=== PATIENT | male | born 1945 | race Caucasian/White ===

== ENCOUNTER 2017-11-27 23:05 | Inpatient (IN) | payer MEDICARE, BC ==
[~2017-11-27] VITALS: Ht 185.4 cm; Wt 106.6 kg
[~2017-11-27 23:05] MED LIST: ACET325; ACET325 PO; AMLO10 PO; ASCO500; ASPI81CH PO; ATOR20 PO; Aspir 8181 MG; Calcium + Vita1 EACH; Cordarone200 MG PO; DOCSEN PO; EQ COMPLETE MU1 EAC1 PO; FERR325 PO; FERROUS SULFATE PO; FINA5 PO; FLUSAL1005 INH; GLIP10 PO; LOSA50 PO; METF500 PO; METO50ER PO; MICROZIDE12.5 MG PO; NAPR220 PO; OMEP40CA12 PO; Ocuvite Lutein1 EACH; POTA8; POTCHL10ER PO; Pyridium100 MG PO; SENN187 PO; TEA TREE; TERA5 PO; TRAM50 PO
[2017-11-27 23:30] LABS: PCO2 Arterial 42.4 mmHg (35-45); pH Blood Arterial 7.45 (7.35-7.45)
[2017-11-27 23:47] LABS: BASOPHILS ABSOLUTE AUTO 0.02 K/mm3 (0.00-0.23); BASOPHILS PERCENT AUTO 0 % (0-2); EOSINOPHILS PERCENT AUTO 0 % (0-6); Hematocrit 37.1 % (37.0-53.0); Hemoglobin 12.6 g/dL (13.5-17.5); IMMATURE GRAN ABSOLUTE AUTO 0.07 K/mm3 (0.00-0.10); IMMATURE GRAN PERCENT AUTO 1 % (0-1); LYMPHOCYTES ABSOLUTE AUTO 0.55 K/mm3 (0.84-5.20); LYMPHOCYTES PERCENT AUTO 4 % (21-46); MONOCYTES ABSOLUTE AUTO 1.07 K/mm3 (0.16-1.47); MONOCYTES PERCENT AUTO 7 % (4-13); Mean Corpuscular HGB 34.2 pg (26.0-34.0); Mean Corpuscular Volume 101 fL (80-100); Mean Platelet Volume 11.6 fL (9.1-12.4); NEUTROPHILS PERCENT AUTO 89 % (41-73); Platelet Count 125 K/mm3 (150-400); RDW Coefficient Variation 13.4 % (11.7-14.2); RDW Standard Deviation 49.7 fL (35.1-46.3); Red Blood Cell Count 3.68 M/mm3 (4.30-5.90); White Blood Cell Count 15.31 K/mm3 (4.00-11.30)
[2017-11-28 00:03] LABS: Alanine Aminotransfer (ALT/SGP 34 U/L (12-78); Albumin, Blood 3.3 g/dL (3.4-5.0); Albumin/Globulin Ratio 0.7 (0.8-1.8); Alk Phos 75 U/L (50-136); Anion Gap 8 mmol/L (6-16); Aspartate Aminotrans (AST/SGOT 34 U/L (12-37); Bilirubin, Total 1.7 mg/dL (0.1-1.0); Blood Urea Nitrogen 15 mg/dL (8-24); Bun/Creatinine Ratio 17.2 (12.0-20.0); CO2, Blood 30 mmol/L (21-32); Calcium, Blood 8.6 mg/dL (8.5-10.1); Chloride, Blood 101 mmol/L (98-108); Creatinine, Blood 0.87 mg/dL (0.60-1.20); Globulin, Blood 4.5 g/dL (2.2-4.0); Glomerular Filtration Rate >60 (60-); Glucose, Blood 175 mg/dL (70-99); Potassium, Blood 3.7 mmol/L (3.5-5.5); Sodium, Blood 139 mmol/L (136-145); Total Protein, Blood 7.8 g/dL (6.4-8.2); Troponin I <0.015 ng/mL (0.000-0.040)
[2017-11-28] MEDS ORDERED: AZAT50 PO (01:59)
[2017-11-28] MEDS ORDERED: LOPE2C PO (02:01)
[2017-11-28] MEDS ORDERED: LIRA0.6P SC (02:02)
[2017-11-28] MEDS ORDERED: TOLT4 PO (02:02)
[2017-11-28 02:40] LABS: Source, Urine Clean Catch
[2017-11-28 02:42] LABS: Bilirubin, Urine Neg (Neg); Blood, Urine 1+ (Neg); Glucose Qualitative, Urine Neg (Neg); Ketones, Urine Neg (Neg); Leukocyte Esterase, Urine Neg (Neg); Nitrite, Urine Neg (Neg); Protein, Urine Neg (Neg); Urobilinogen, Urine NORM (Normal)
[2017-11-28 02:43] LABS: Appearance, Urine Clear (Clear); Color, Urine Yellow (P-Yellow)
[2017-11-28 02:47] LABS: Bacteria Not Seen /hpf; Red Blood Cells, Urine 0-2 /hpf (0-2); Squamous Epithelial Cells Few /hpf (Few); White Blood Cells, Urine Not Seen /hpf (0-5)
[2017-11-28 02:48] LABS: Other Crystals Few /hpf
[2017-11-28 03:02] LABS: Influenza A Negative (NEGATIVE); Influenza B Negative (NEGATIVE)
[2017-11-28 03:07] LABS: BASOPHILS ABSOLUTE AUTO 0.02 K/mm3 (0.00-0.23); BASOPHILS PERCENT AUTO 0 % (0-2); EOSINOPHILS PERCENT AUTO 0 % (0-6); Hematocrit 36.3 % (37.0-53.0); Hemoglobin 12.1 g/dL (13.5-17.5); IMMATURE GRAN ABSOLUTE AUTO 0.06 K/mm3 (0.00-0.10); IMMATURE GRAN PERCENT AUTO 0 % (0-1); LYMPHOCYTES ABSOLUTE AUTO 0.71 K/mm3 (0.84-5.20); LYMPHOCYTES PERCENT AUTO 5 % (21-46); MONOCYTES ABSOLUTE AUTO 1.09 K/mm3 (0.16-1.47); MONOCYTES PERCENT AUTO 7 % (4-13); Mean Corpuscular HGB 34.1 pg (26.0-34.0); Mean Corpuscular HGB Conc 33.3 g/dL (31.5-36.5); Mean Corpuscular Volume 102 fL (80-100); Mean Platelet Volume 11.4 fL (9.1-12.4); NEUTROPHILS ABSOLUTE AUTO 12.77 K/mm3 (1.96-9.15); NEUTROPHILS PERCENT AUTO 87 % (41-73); Platelet Count 116 K/mm3 (150-400); RDW Coefficient Variation 13.5 % (11.7-14.2); RDW Standard Deviation 50.8 fL (35.1-46.3); Red Blood Cell Count 3.55 M/mm3 (4.30-5.90); White Blood Cell Count 14.65 K/mm3 (4.00-11.30)
[2017-11-28 03:23] LABS: Alanine Aminotransfer (ALT/SGP 29 U/L (12-78); Albumin, Blood 3.1 g/dL (3.4-5.0); Albumin/Globulin Ratio 0.7 (0.8-1.8); Alk Phos 72 U/L (50-136); Anion Gap 4 mmol/L (6-16); Aspartate Aminotrans (AST/SGOT 29 U/L (12-37); Bilirubin, Total 1.4 mg/dL (0.1-1.0); Blood Urea Nitrogen 14 mg/dL (8-24); Bun/Creatinine Ratio 16.3 (12.0-20.0); CO2, Blood 32 mmol/L (21-32); Calcium, Blood 8.3 mg/dL (8.5-10.1); Chloride, Blood 104 mmol/L (98-108); Creatinine, Blood 0.86 mg/dL (0.60-1.20); Globulin, Blood 4.4 g/dL (2.2-4.0); Glomerular Filtration Rate >60 (60-); Glucose, Blood 150 mg/dL (70-99); Potassium, Blood 3.8 mmol/L (3.5-5.5); Sodium, Blood 140 mmol/L (136-145); Total Protein, Blood 7.5 g/dL (6.4-8.2)
[2017-11-29 04:50] LABS: BASOPHILS ABSOLUTE AUTO 0.02 K/mm3 (0.00-0.23); BASOPHILS PERCENT AUTO 0 % (0-2); EOSINOPHILS PERCENT AUTO 0 % (0-6); Hemoglobin 11.4 g/dL (13.5-17.5); IMMATURE GRAN PERCENT AUTO 1 % (0-1); LYMPHOCYTES ABSOLUTE AUTO 0.48 K/mm3 (0.84-5.20); LYMPHOCYTES PERCENT AUTO 3 % (21-46); MONOCYTES ABSOLUTE AUTO 0.58 K/mm3 (0.16-1.47); MONOCYTES PERCENT AUTO 4 % (4-13); Mean Corpuscular HGB 33.9 pg (26.0-34.0); Mean Corpuscular HGB Conc 33.5 g/dL (31.5-36.5); Mean Corpuscular Volume 101 fL (80-100); Mean Platelet Volume 12.2 fL (9.1-12.4); NEUTROPHILS ABSOLUTE AUTO 13.98 K/mm3 (1.96-9.15); NEUTROPHILS PERCENT AUTO 92 % (41-73); Platelet Count 131 K/mm3 (150-400); RDW Coefficient Variation 13.4 % (11.7-14.2); RDW Standard Deviation 49.7 fL (35.1-46.3); Red Blood Cell Count 3.36 M/mm3 (4.30-5.90); White Blood Cell Count 15.16 K/mm3 (4.00-11.30)
[2017-11-29 05:11] LABS: Alanine Aminotransfer (ALT/SGP 26 U/L (12-78); Albumin, Blood 2.8 g/dL (3.4-5.0); Albumin/Globulin Ratio 0.7 (0.8-1.8); Alk Phos 65 U/L (50-136); Anion Gap 7 mmol/L (6-16); Aspartate Aminotrans (AST/SGOT 26 U/L (12-37); Bilirubin, Total 0.8 mg/dL (0.1-1.0); Blood Urea Nitrogen 23 mg/dL (8-24); Bun/Creatinine Ratio 26.7 (12.0-20.0); CO2, Blood 29 mmol/L (21-32); Calcium, Blood 8.6 mg/dL (8.5-10.1); Chloride, Blood 104 mmol/L (98-108); Creatinine, Blood 0.86 mg/dL (0.60-1.20); Globulin, Blood 4.3 g/dL (2.2-4.0); Glomerular Filtration Rate >60 (60-); Glucose, Blood 296 mg/dL (70-99); Potassium, Blood 4.1 mmol/L (3.5-5.5); Sodium, Blood 140 mmol/L (136-145); Total Protein, Blood 7.1 g/dL (6.4-8.2)
[2017-11-29] MEDS ORDERED: ROBITUSSIN COU237 ML PO (09:59)
[2017-11-29] MEDS ORDERED: ACET325 PO (09:59)
[2017-11-29] MEDS ORDERED: PRED10 (10:00)
[2017-11-29] MEDS ORDERED: ALBU90OI INH (10:00)
[2017-11-29] MEDS ORDERED: SACC250C PO (10:01)
[2017-11-29] MEDS ORDERED: LEVFLO500 PO (10:01)
== END 2017-11-29 12:12 | disposition home or self-care (01) | DRG 202 ==
LOC: ER 23:05 → MEDS 23:06 → ENPENDDIS 11-29 09:00 → MEDS 11-29 12:12
PROVIDERS: Emergency Medicine; Hospitalist; Internal Medicine
PROC: 5A09357 Assistance with Respiratory Ventilation, Less than 24 Consecutive Hours, Continuous Positive Airway Pressure (ICD-10-PCS; principal; 2017-11-28)
DX: J20.9 Acute bronchitis, unspecified (principal); J44.0 Chronic obstructive pulmonary disease with (acute) lower respiratory infection; J44.1 Chronic obstructive pulmonary disease with (acute) exacerbation; K58.9 Irritable bowel syndrome, unspecified; E11.9 Type 2 diabetes mellitus without complications; I25.10 Atherosclerotic heart disease of native coronary artery without angina pectoris; R32 Unspecified urinary incontinence; Z66 Do not resuscitate; Z95.1 Presence of aortocoronary bypass graft; Z95.2 Presence of prosthetic heart valve; Z88.5 Allergy status to narcotic agent; Z91.09 Other allergy status, other than to drugs and biological substances; Z79.84 Long term (current) use of oral hypoglycemic drugs; Z79.51 Long term (current) use of inhaled steroids; Z79.899 Other long term (current) drug therapy
CPT/HCPCS: 36415; 36600; 71046; 80053; 81001; 82803; 82947; 83605; 83880; 84484; 85025; 87040; 87070; 87186; 87205; 87804; 93005; 93010; 94640; 94762; 96360; 97116; 97161; 97530; 99285; G8978; G8979; J1650; J1956; J2930; J7030; J7500

== ENCOUNTER 2018-04-25 10:46 | Day surgery (SDC) | payer MEDICARE, BC ==
[~2018-04-25] VITALS: Ht 185.4 cm; Wt 107.7 kg
[~2018-04-25 10:46] MED LIST changes: +ALBU90OI INH; +AZAT50 PO; +Align4 MG PO; +Aspir 8181 MG PO; +GLIP5 PO; +LEVFLO500 PO; +LIRA0.6P SC; +LOPE2C PO; +MYRBETRIQ25 MG PO; +OXYB5 PO; +Omeprazole20 M1 PO; +PRED10; +Questran4 GM PO; +ROBITUSSIN COU237 ML PO; +SACC250C PO; +TOLT4 PO
== END 2018-04-25 12:29 | disposition home or self-care (01) ==
LOC: ORSCSDS 10:46
PROVIDERS: Internal Medicine Gastroenterology
PROC: 0DJD8ZZ Inspection of Lower Intestinal Tract, Via Natural or Artificial Opening Endoscopic (ICD-10-PCS; principal; 2018-04-25 12:30)
DX: K50.90 Crohn's disease, unspecified, without complications (principal); Z86.010 Personal history of colon polyps; K21.9 Gastro-esophageal reflux disease without esophagitis; G47.30 Sleep apnea, unspecified; E11.9 Type 2 diabetes mellitus without complications; Z95.1 Presence of aortocoronary bypass graft; E66.01 Morbid (severe) obesity due to excess calories; Z68.32 Body mass index [BMI] 32.0-32.9, adult; Z79.82 Long term (current) use of aspirin; Z79.84 Long term (current) use of oral hypoglycemic drugs; Z79.899 Other long term (current) drug therapy
CPT/HCPCS: 82947; J7120

== ENCOUNTER 2018-08-03 20:13 | Emergency (ER) | payer OTHER, MEDICARE, BC ==
[~2018-08-03] VITALS: Ht 185.4 cm; Wt 108.9 kg
[~2018-08-03 20:13] MED LIST changes: -Zovirax800 MG PO
[2018-08-04] MEDS ORDERED: Zovirax800 MG PO (01:12)
[2018-08-04 02:10] LABS: Source, Urine Voided
[2018-08-04 02:13] LABS: Bilirubin, Urine Neg (Neg); Blood, Urine 2+ (Neg); Glucose Qualitative, Urine 3+ (Neg); Ketones, Urine Neg (Neg); Leukocyte Esterase, Urine Neg (Neg); Nitrite, Urine Neg (Neg); Protein, Urine 1+ (Neg); Specific Gravity, Urine 1.025 (1.003-1.022); Urobilinogen, Urine 1+ (Normal)
[2018-08-04 02:24] LABS: Appearance, Urine Clear (Clear); Color, Urine Yellow (P-Yellow)
[2018-08-04 02:31] LABS: Bacteria Few /hpf; Mucus Light (0-Heavy); Squamous Epithelial Cells Not Seen /hpf (Few); White Blood Cells, Urine 0-2 /hpf (0-5)
[2018-08-04 02:39] LABS: BASOPHILS ABSOLUTE AUTO 0.03 K/mm3 (0.00-0.23); BASOPHILS PERCENT AUTO 0 % (0-2); EOSINOPHILS ABSOLUTE AUTO 0.29 K/mm3 (0.00-0.68); EOSINOPHILS PERCENT AUTO 4 % (0-6); Hematocrit 33.3 % (37.0-53.0); Hemoglobin 10.9 g/dL (13.5-17.5); IMMATURE GRAN ABSOLUTE AUTO 0.02 K/mm3 (0.00-0.10); IMMATURE GRAN PERCENT AUTO 0 % (0-1); LYMPHOCYTES ABSOLUTE AUTO 1.25 K/mm3 (0.84-5.20); LYMPHOCYTES PERCENT AUTO 16 % (21-46); MONOCYTES ABSOLUTE AUTO 0.97 K/mm3 (0.16-1.47); MONOCYTES PERCENT AUTO 12 % (4-13); Mean Corpuscular HGB 32.2 pg (26.0-34.0); Mean Corpuscular HGB Conc 32.7 g/dL (31.5-36.5); Mean Platelet Volume 11.9 fL (9.1-12.4); NEUTROPHILS ABSOLUTE AUTO 5.51 K/mm3 (1.96-9.15); NEUTROPHILS PERCENT AUTO 68 % (41-73); Platelet Count 121 K/mm3 (150-400); RDW Coefficient Variation 14.3 % (11.7-14.2); RDW Standard Deviation 51.4 fL (35.1-46.3); Red Blood Cell Count 3.38 M/mm3 (4.30-5.90); White Blood Cell Count 8.07 K/mm3 (4.00-11.30)
[2018-08-04 02:41] LABS: Mean Corpuscular Volume 99 fL (80-100)
[2018-08-04 02:54] LABS: Alanine Aminotransfer (ALT/SGP 37 U/L (12-78); Albumin, Blood 2.8 g/dL (3.4-5.0); Albumin/Globulin Ratio 0.8 (0.8-1.8); Alk Phos 63 U/L (50-136); Anion Gap 8 mmol/L (6-16); Aspartate Aminotrans (AST/SGOT 41 U/L (12-37); Bilirubin, Total 0.5 mg/dL (0.1-1.0); Blood Urea Nitrogen 23 mg/dL (8-24); Bun/Creatinine Ratio 31.2 (12.0-20.0); CO2, Blood 27 mmol/L (21-32); Calcium, Blood 7.8 mg/dL (8.5-10.1); Chloride, Blood 107 mmol/L (98-108); Creatinine, Blood 0.74 mg/dL (0.60-1.20); Globulin, Blood 3.7 g/dL (2.2-4.0); Glomerular Filtration Rate >60 (60-); Glucose, Blood 216 mg/dL (70-99); Potassium, Blood 3.2 mmol/L (3.5-5.5); Sodium, Blood 142 mmol/L (136-145); Total Protein, Blood 6.5 g/dL (6.4-8.2)
== END 2018-08-04 06:05 | disposition home or self-care (01) ==
LOC: ER 20:13
PROVIDERS: Emergency Medicine
DX: B02.9 Zoster without complications (principal); R53.1 Weakness; E87.6 Hypokalemia; E83.52 Hypercalcemia; E86.0 Dehydration; Z88.5 Allergy status to narcotic agent; Z88.8 Allergy status to other drugs, medicaments and biological substances; Z79.899 Other long term (current) drug therapy; Z79.84 Long term (current) use of oral hypoglycemic drugs; E11.9 Type 2 diabetes mellitus without complications; I25.10 Atherosclerotic heart disease of native coronary artery without angina pectoris
CPT/HCPCS: 80053; 81001; 85025; 93005; 93010; 99283-25; J0610; J7030

== ENCOUNTER → 2018-08-03 | Outpatient (CLI) | payer MEDICARE, BC ==
[~2018-08-03] MED LIST changes: +Zovirax800 MG PO
[2018-08-03 16:43] LABS: BASOPHILS ABSOLUTE AUTO 0.03 K/mm3 (0.00-0.23); BASOPHILS PERCENT AUTO 0 % (0-2); EOSINOPHILS ABSOLUTE AUTO 0.09 K/mm3 (0.00-0.68); EOSINOPHILS PERCENT AUTO 1 % (0-6); Hematocrit 35.4 % (37.0-53.0); Hemoglobin 11.8 g/dL (13.5-17.5); Mean Corpuscular HGB 32.1 pg (26.0-34.0); Mean Corpuscular HGB Conc 33.3 g/dL (31.5-36.5); Mean Corpuscular Volume 96 fL (80-100); Platelet Count 145 K/mm3 (150-400); RDW Coefficient Variation 14.3 % (11.7-14.2); RDW Standard Deviation 50.3 fL (35.1-46.3); Red Blood Cell Count 3.68 M/mm3 (4.30-5.90); White Blood Cell Count 8.17 K/mm3 (4.00-11.30)
[2018-08-03 16:48] LABS: Anion Gap 8 mmol/L (6-16); Blood Urea Nitrogen 27 mg/dL (8-24); Bun/Creatinine Ratio 24.1 (12.0-20.0); CO2, Blood 31 mmol/L (21-32); Chloride, Blood 99 mmol/L (98-108); Creatinine, Blood 1.12 mg/dL (0.60-1.20); Glomerular Filtration Rate >60 (60-); Glucose, Blood 245 mg/dL (70-99); IMMATURE GRAN ABSOLUTE AUTO 0.04 K/mm3 (0.00-0.10); IMMATURE GRAN PERCENT AUTO 1 % (0-1); LYMPHOCYTES ABSOLUTE AUTO 0.89 K/mm3 (0.84-5.20); LYMPHOCYTES PERCENT AUTO 11 % (21-46); MONOCYTES ABSOLUTE AUTO 0.91 K/mm3 (0.16-1.47); MONOCYTES PERCENT AUTO 11 % (4-13); NEUTROPHILS ABSOLUTE AUTO 6.21 K/mm3 (1.96-9.15); NEUTROPHILS PERCENT AUTO 76 % (41-73); Potassium, Blood 3.5 mmol/L (3.5-5.5); Sodium, Blood 138 mmol/L (136-145)
== END | disposition home or self-care (01) ==
LOC: LAB EV 16:39 → LAB SHORT 16:39
PROVIDERS: Physician Assistant Surgical
DX: R53.83 Other fatigue (principal); R20.2 Paresthesia of skin
CPT/HCPCS: 80048; 82607; 85025

== ENCOUNTER → 2019-01-28 | Outpatient (CLI) | payer MEDICARE, BC ==
[~2019-01-28] MED LIST changes: -AMLO10 PO; +AMLO5 PO; -ATOR20 PO; +ATOR40TA PO; +Aldactone25 MG PO; +Amiodarone HCl200 MG PO; +CARV25 PO; +CEFD300 PO; +FLUT1DIS2 INH; +Lasix20 MG PO; +METO25 PO; +RANO500T PO; +TROSPIUM CHLORI20 MG PO; +XARELTO20 MG PO; +Zovirax800 MG PO
== END | disposition home or self-care (01) ==
LOC: LAB SHORT 07:57 → PLD 07:57
DX: C44.212 Basal cell carcinoma of skin of right ear and external auricular canal (principal)
CPT/HCPCS: 88305

== ENCOUNTER 2019-02-11 21:01 | Inpatient (IN) | payer MEDICARE, BC ==
[~2019-02-11] VITALS: Ht 185.4 cm; Wt 111.5 kg
[~2019-02-11 21:01] MED LIST changes: -AMLO5 PO; -ATOR40TA PO; -Aldactone25 MG PO; -Amiodarone HCl200 MG PO; -CARV25 PO; -CEFD300 PO; -FLUT1DIS2 INH; -GLIP5 PO; -LIRA0.6P SC; -LOPE2C PO; -Lasix20 MG PO; -METF500 PO; -METO25 PO; -MICROZIDE12.5 MG PO; -MYRBETRIQ25 MG PO; -Omeprazole20 M1 PO; -POTCHL10ER PO; -Questran4 GM PO; -RANO500T PO; -TROSPIUM CHLORI20 MG PO; -XARELTO20 MG PO
[2019-02-11 22:16] LABS: BASOPHILS ABSOLUTE AUTO 0.02 K/mm3 (0.00-0.23); BASOPHILS PERCENT AUTO 0 % (0-2); EOSINOPHILS ABSOLUTE AUTO 3.13 K/mm3 (0.00-0.68); EOSINOPHILS PERCENT AUTO 20 % (0-6); Hematocrit 39.4 % (37.0-53.0); Hemoglobin 12.3 g/dL (13.5-17.5); IMMATURE GRAN ABSOLUTE AUTO 0.08 K/mm3 (0.00-0.10); IMMATURE GRAN PERCENT AUTO 1 % (0-1); LYMPHOCYTES ABSOLUTE AUTO 0.98 K/mm3 (0.84-5.20); LYMPHOCYTES PERCENT AUTO 6 % (21-46); MONOCYTES ABSOLUTE AUTO 0.66 K/mm3 (0.16-1.47); MONOCYTES PERCENT AUTO 4 % (4-13); Mean Corpuscular HGB 31.7 pg (26.0-34.0); Mean Corpuscular HGB Conc 31.2 g/dL (31.5-36.5); Mean Platelet Volume 11.2 fL (9.1-12.4); NEUTROPHILS ABSOLUTE AUTO 10.74 K/mm3 (1.96-9.15); NEUTROPHILS PERCENT AUTO 69 % (41-73); Platelet Count 197 K/mm3 (150-400); RDW Coefficient Variation 14.3 % (11.7-14.2); RDW Standard Deviation 52.9 fL (35.1-46.3); Red Blood Cell Count 3.88 M/mm3 (4.30-5.90); White Blood Cell Count 15.61 K/mm3 (4.00-11.30)
[2019-02-11 22:17] LABS: Mean Corpuscular Volume 102 fL (80-100)
[2019-02-11 22:39] LABS: Alanine Aminotransfer (ALT/SGP 19 U/L (12-78); Albumin, Blood 2.8 g/dL (3.4-5.0); Albumin/Globulin Ratio 0.5 (0.8-1.8); Alk Phos 92 U/L (50-136); Anion Gap 4 mmol/L (6-16); Aspartate Aminotrans (AST/SGOT 20 U/L (12-37); Bilirubin, Total 0.5 mg/dL (0.1-1.0); Blood Urea Nitrogen 13 mg/dL (8-24); Bun/Creatinine Ratio 14.8 (12.0-20.0); CO2, Blood 30 mmol/L (21-32); Calcium, Blood 8.8 mg/dL (8.5-10.1); Chloride, Blood 104 mmol/L (98-108); Creatinine, Blood 0.88 mg/dL (0.60-1.20); Globulin, Blood 5.5 g/dL (2.2-4.0); Glomerular Filtration Rate >60 (60-); Glucose, Blood 93 mg/dL (70-99); Sodium, Blood 138 mmol/L (136-145); Total Protein, Blood 8.3 g/dL (6.4-8.2); Troponin I 0.088 ng/mL (0.000-0.040)
--- NOTE | 2019-02-12 01:56 | NUR ---
Pt arrived to PCU 15 via stretcher with RN at bedside. Pt states he feels he can transfer self from gurney to bed. Pt needed moderate assistance from the gurney to the bed. pt saturated in urine at arrival. Attends changed, CDI. VSS. Denies CP/pressure. Denies SOB. Breathing easy and unlabored. RA. Will continue monitoring and updating.
--- NOTE | 2019-02-12 05:40 | NUR ---
SHIFT SUMMARY No acute changes this shift since admission. Pt continues to deny chest pain or chest pressure. Breathing remains easy and unlabored, CPAP compliant, resting comfortably in bed at this time. VSS. No acute changes on tele, remains Afib, rates controlled in low 100's. No changes from initial shift assessment. Call light in reach, sarah, able to make needs known. Echo planned for this AM, family to bring in a complete medication list later this AM to reconcile medications. Lab attempted to draw at 0530, not successful. Awaiting successful lab draw at this time. Will continue monitoring and updating until shift change.
[2019-02-12 06:19] LABS: CHOL/HDL RATIO 4.4; Cholesterol 128 mg/dL (50-200); HDL Cholesterol 29 mg/dL (>39); LDL/HDL RATIO 2.5; Low Density Lipoprotein Chol 73 mg/dL (0-110); Triglycerides 132 mg/dL (30-160); Very Low Density Lipoprot Chol 26 mg/dL (6-32)
--- NOTE | 2019-02-12 07:56 | NUR ---
pt laying in bed awake a/ox3, a bit slow in response, denies pain, states he slept well last night, am care done, got him up to a chair for breakfast, lungs are clear dim in bases, resp even and unlabored, no cough noted, hrirr, tele in place running afib per monitor, see strip, no edema noted, ppp+1, cap refill <3sec, vs stable, afebrile, iv site is clear and patent, btx4, abd flat soft nontender, incont, has attends in place, skin c/w/d, maew, weak but able to stand and transfer to chair with one person assist, anjum, call light in reach.
--- NOTE | 2019-02-12 08:36 | NUR ---
PARTIAL ECHOCARDIOGRAM COMPLETED
--- NOTE | 2019-02-12 14:38 | NUR ---
pt resting in bed, has been up to the chair most of the morning, visitors in to see him, call light in reach.
--- NOTE | 2019-02-12 15:37 | NUR ---
Dr. Lopez was in to see pt, he is going to discharge him to home.
--- NOTE | 2019-02-12 18:18 | NUR ---
PT HAS BEEN DISCHARGED TO HOME, WENT OVER DISCHARGE INSTRUCTIONS WITH HIM AND , THEY VERBALIZED UNDERSTANDING. IV REMOVED INTACT, LEFT VIA WHEELCHAIR WITH CATERER'S AIDE IN ATTENDENCE, HE HAS ALL BELONGINGS.
== END 2019-02-12 18:11 | disposition home or self-care (01) | DRG 281 ==
LOC: ER 21:01 → PCU 02-12 00:18
PROVIDERS: Emergency Medicine; ADMIT Internal Medicine
DX: I48.0 Paroxysmal atrial fibrillation (principal); I21.4 Non-ST elevation (NSTEMI) myocardial infarction; K50.90 Crohn's disease, unspecified, without complications; I10 Essential (primary) hypertension; E11.9 Type 2 diabetes mellitus without complications; Z79.4 Long term (current) use of insulin; I25.10 Atherosclerotic heart disease of native coronary artery without angina pectoris; G47.33 Obstructive sleep apnea (adult) (pediatric); D64.9 Anemia, unspecified; Z79.01 Long term (current) use of anticoagulants; Z95.2 Presence of prosthetic heart valve
CPT/HCPCS: 36415; 71046; 80053; 80061; 82947; 83036; 83605; 83880; 84443; 84484; 85025; 87040; 93005; 93010; 93308; 93321; 94640; 94762; 96365; 96367; 96375; 99285-25; J0456; J0696; J1815; J7030; J7050

== ENCOUNTER 2019-02-27 19:14 | Inpatient (IN) | payer MEDICARE, BC ==
[~2019-02-27] VITALS: Ht 182.9 cm; Wt 114.5 kg
[2019-02-27 20:06] LABS: BASOPHILS ABSOLUTE AUTO 0.03 K/mm3 (0.00-0.23); BASOPHILS PERCENT AUTO 0 % (0-2); EOSINOPHILS ABSOLUTE AUTO 2.21 K/mm3 (0.00-0.68); EOSINOPHILS PERCENT AUTO 19 % (0-6); Hematocrit 35.5 % (37.0-53.0); Hemoglobin 11.2 g/dL (13.5-17.5); IMMATURE GRAN ABSOLUTE AUTO 0.04 K/mm3 (0.00-0.10); IMMATURE GRAN PERCENT AUTO 0 % (0-1); LYMPHOCYTES ABSOLUTE AUTO 1.01 K/mm3 (0.84-5.20); LYMPHOCYTES PERCENT AUTO 9 % (21-46); MONOCYTES ABSOLUTE AUTO 0.59 K/mm3 (0.16-1.47); MONOCYTES PERCENT AUTO 5 % (4-13); Mean Corpuscular HGB 31.2 pg (26.0-34.0); Mean Corpuscular HGB Conc 31.5 g/dL (31.5-36.5); Mean Corpuscular Volume 99 fL (80-100); Mean Platelet Volume 11.5 fL (9.1-12.4); NEUTROPHILS ABSOLUTE AUTO 7.63 K/mm3 (1.96-9.15); NEUTROPHILS PERCENT AUTO 66 % (41-73); Platelet Count 125 K/mm3 (150-400); RDW Coefficient Variation 14.9 % (11.7-14.2); RDW Standard Deviation 53.3 fL (35.1-46.3); Red Blood Cell Count 3.59 M/mm3 (4.30-5.90); White Blood Cell Count 11.51 K/mm3 (4.00-11.30)
[2019-02-27 20:28] LABS: Alanine Aminotransfer (ALT/SGP 18 U/L (12-78); Albumin, Blood 2.9 g/dL (3.4-5.0); Albumin/Globulin Ratio 0.6 (0.8-1.8); Alk Phos 79 U/L (50-136); Anion Gap 7 mmol/L (6-16); Aspartate Aminotrans (AST/SGOT 26 U/L (12-37); Bilirubin, Total 0.5 mg/dL (0.1-1.0); Blood Urea Nitrogen 23 mg/dL (8-24); Bun/Creatinine Ratio 23.1 (12.0-20.0); CO2, Blood 28 mmol/L (21-32); Chloride, Blood 105 mmol/L (98-108); Glomerular Filtration Rate >60 (60-); Glucose, Blood 111 mg/dL (70-99); Potassium, Blood 4.1 mmol/L (3.5-5.5); Sodium, Blood 140 mmol/L (136-145); Total Protein, Blood 7.9 g/dL (6.4-8.2)
[2019-02-27] MEDS ORDERED: METO25 PO ×2 (21:34→21:48)
[2019-02-27] MEDS ORDERED: METF500 PO (21:44)
[2019-02-27] MEDS ORDERED: ATOR40TA PO (21:44)
[2019-02-27] MEDS ORDERED: AMLO5 PO (21:45)
[2019-02-27] MEDS ORDERED: MICROZIDE12.5 MG PO (21:45)
[2019-02-27] MEDS ORDERED: POTCHL10ER PO (21:45)
[2019-02-27] MEDS ORDERED: LOPE2C PO (21:46)
[2019-02-27] MEDS ORDERED: FLUT1DIS2 INH (21:46)
[2019-02-27] MEDS ORDERED: MYRBETRIQ25 MG PO (21:47)
[2019-02-27] MEDS ORDERED: GLIP5 PO (21:47)
[2019-02-27] MEDS ORDERED: Questran4 GM PO (21:47)
[2019-02-27] MEDS ORDERED: LOSA50 PO (21:47)
[2019-02-27] MEDS ORDERED: Omeprazole20 M1 PO (21:48)
[2019-02-27] MEDS ORDERED: AZAT50 PO (21:48)
[2019-02-27 21:57] LABS: Creatine Kinase MB 7.9 ng/mL (0.0-3.6)
[2019-02-27] MEDS ORDERED: LIRA0.6P SC (22:28)
[2019-02-27] MEDS ORDERED: XARELTO20 MG PO (22:29)
--- NOTE | 2019-02-28 01:00 | NUR ---
PCU ADMIT PT BROUGHT TO PCU RM 05 FROM THE ER BY NILDA @ APPROX 0040. PT A&O X4. PT ABLE TO STAND AND AMBULATE TO PCU BED W/ SBA. PT STATES NORMALLY USING FWW FOR AMBULATION. PT'S AT BEDSIDE. PT BROUGHT TO PCU W/ NITRO OINTMENT ON CHEST. PT DENIES CP OR ANY OTHER PAIN/DISCOMFORT AT THIS TIME. LUNG SOUNDS CLEAR T/O. SPO2 > 92% ON RA. PT TO BE SET UP W/ CPAP BY RT. MONITOR SHOWS NSR, HR 80-100. PT INCONTINENT OF URINE, WEARING ATTENDS AND UNABLE TO FEEL WHEN ATTENDS IS WET. WILL CONTINUE TO MONITOR AND PROVIDE CARE.
[2019-02-28 02:18] LABS: BASOPHILS ABSOLUTE AUTO 0.01 K/mm3 (0.00-0.23); BASOPHILS PERCENT AUTO 0 % (0-2); EOSINOPHILS ABSOLUTE AUTO 1.79 K/mm3 (0.00-0.68); EOSINOPHILS PERCENT AUTO 16 % (0-6); Hemoglobin 10.4 g/dL (13.5-17.5); IMMATURE GRAN ABSOLUTE AUTO 0.02 K/mm3 (0.00-0.10); IMMATURE GRAN PERCENT AUTO 0 % (0-1); LYMPHOCYTES ABSOLUTE AUTO 1.01 K/mm3 (0.84-5.20); LYMPHOCYTES PERCENT AUTO 9 % (21-46); MONOCYTES ABSOLUTE AUTO 0.48 K/mm3 (0.16-1.47); MONOCYTES PERCENT AUTO 4 % (4-13); Mean Corpuscular HGB 31.4 pg (26.0-34.0); Mean Corpuscular HGB Conc 31.5 g/dL (31.5-36.5); Mean Corpuscular Volume 100 fL (80-100); Mean Platelet Volume 11.3 fL (9.1-12.4); NEUTROPHILS ABSOLUTE AUTO 7.91 K/mm3 (1.96-9.15); NEUTROPHILS PERCENT AUTO 70 % (41-73); Platelet Count 112 K/mm3 (150-400); RDW Coefficient Variation 14.7 % (11.7-14.2); RDW Standard Deviation 53.2 fL (35.1-46.3); Red Blood Cell Count 3.31 M/mm3 (4.30-5.90); White Blood Cell Count 11.22 K/mm3 (4.00-11.30)
[2019-02-28 02:30] LABS: Anion Gap 6 mmol/L (6-16); Blood Urea Nitrogen 22 mg/dL (8-24); CO2, Blood 29 mmol/L (21-32); Calcium, Blood 8.2 mg/dL (8.5-10.1); Chloride, Blood 105 mmol/L (98-108); Creatinine, Blood 0.96 mg/dL (0.60-1.20); Glomerular Filtration Rate >60 (60-); Glucose, Blood 96 mg/dL (70-99); International Normalized Ratio 1.25; Potassium, Blood 3.9 mmol/L (3.5-5.5); Sodium, Blood 140 mmol/L (136-145)
--- NOTE | 2019-02-28 05:29 | NUR ---
SHIFT SUMMARY PT A&O X4. VSS. PT DENIES CP THIS SHIFT. LUNG SOUNDS CLEAR, DIM IN BASES. SPO2 > 92% ON RA OR CPAP WHILE SLEEPING. MONITOR SHOWS WAP, HR 80-100. PT INCONTINENT, WEARING ATTENDS. PRN FARHAT CARE/ATTENDS CHANGES PROVIDED. PT NPO, AWAITING CARDIOLOGY CONSULT. CARDIOLOGY CONSULT CALLED TO ANSWERING SERVICE. PT IN BED W/ CALL LIGHT IN REACH. WILL CONTINUE TO MONITOR AND PROVIDE CARE UNTIL REPORT OFF TO DAY SHIFT RN.
--- NOTE | 2019-02-28 10:35 | NUR ---
Initial palliative care consult: Jus is a 73 year old gentleman who was admitted with a NSTEMI. He is currently NPO and awaiting an angiogram today. He has a history of CAD S/P CABG with aortic valve replacement, a-fib, AMANDA, HTN, DM, COPD and GERD. His reports that he has an AD and a POLST form filled out. [place] fax [place] yet from [place]. Faxed [place] registry this morning for a copy of his POL[place] form. Pt is very tired, he falls asleep during conversation, so most of the time was spent speaking with his family members at bedside. They have no concerns at this time. They state that they may have questions once the angiogram is completed. Explained that speech language pathologist prn will discuss findings with them and offer a recommendation for treatment once the angio is complete. Spoke with monorail charger operator, Rosie, who states currently there are several patients needing the manager cath lab and at this time there is not a specific time for Jus's procedure. Explained this to pt's family and they voiced understanding. Shannon stated that once they have a time for his procedure staff will let pt and family know. PC will plan to f/u with Jus and his family after the procedure. Pt is lightly snoring during the visit and appears to be comfortable at this time.
--- NOTE | 2019-02-28 13:41 | NUR ---
PATIENT IS OUT OF ROOM FOR ANGIOGRAM. LEFT AT 13:10 ON 02/28/19
--- NOTE | 2019-02-28 15:52 | NUR ---
Stopped in to check on Jus after his angiogram. He is awake and eating a sandwich. His reports that they did not find anything during his test today. Medical Editor recommended to them to see PCP for medication review and to keep the upcoming cardiology appoinment. Pt's is disappointed, "We're back to square one." Pt was more upbeat stating, "It's a positive thing they didn't find anything and I get to eat!" No needs noted at this time. No POLST rec'd from POLST registry as of this documentation.
--- NOTE | 2019-02-28 15:53 | NUR ---
PATIENT IS ALERT AND ORIENTED. NO COMPLAINTS OF PAIN. TR BAND ON LEFT ARM. PATIENT ENCOURAGED TO NOT USE LEFT ARM. FAMILY IS AT THE BEDSIDE.
--- NOTE | 2019-02-28 17:57 | NUR ---
PATIENT IS ALERT AND ORIENTED. TR BAND STILL IN PLACE. PATIENT IS REFRAINING FROM USING LEFT ARM. PATIENT HAS EATEN LUNCH AND DINNER. FAMILY IS AT THE BEDSIDE. PATIENT HAS BEEN CONTINENT THROUGHOUT THE DAY, ATTENDS IN PLACE. DIET IS NOW CARDIAC. VITALS HAVE BEEN STABLE FOLLOWING PROCEDURE. NO COMPLAINTS OF PAIN OR TENDERNESS IN LEFT ARM. WILL CONTINUE TO MONITOR.
--- NOTE | 2019-02-28 20:07 | NUR ---
CARE ASSUMPTION PT A&O X4. BP ELEVATED, OTHERWISE VSS. TR BAND TO L RADIAL ACCESS SITE COMPLETELY DEFLATED UPON CARE ASSUMPTION. THIS RN TO REMOVE TR BAND. SMALL AMOUNT OF DRY RED BLOOD AT SITE ASSESSED W/ DAY SHIFT RN, OTHERWISE SITE WNL, NO NEW BLEEDING, NO HEMATOMA. ARM IMMOBILIZER IN PLACE TO LEFT WRIST. PT COMPLIANT W/ NOT BENDING OR USING L ARM. WILL CONTINUE TO MONITOR AND PROVIDE CARE.
--- NOTE | 2019-03-01 04:39 | NUR ---
SHIFT SUMMARY PT A&O X4. BP ELEVATED, OTHERWISE VSS. TR BAND TO L RADIAL ACCESS SITE REMOVED WNL. NO BLEEDING, NO HEMATOMA. TEGADERM DRESSING APPLIED TO SITE, ARM IMMOBILIZER IN PLACE. LUNG SOUNDS CLEAR, DIM IN BASES. SPO2 > 92% ON RA. PT WEARING CPAP T/O NIGHT WHILE SLEEPING. MONITOR SHOWS WAP, HR 80-120. PT SBA W/ FWW, ABLE TO AMBULATE INTO BATHROOM. EPISODES OF CONTINENCE & INCONTINENCE. PT WEARING ATTENDS. WILL CONTINUE TO MONITOR AND PROVIDE CARE UNTIL REPORT OFF TO DAY SHIFT RN.
[2019-03-01 05:41] LABS: BASOPHILS ABSOLUTE AUTO 0.02 K/mm3 (0.00-0.23); BASOPHILS PERCENT AUTO 0 % (0-2); EOSINOPHILS ABSOLUTE AUTO 2.87 K/mm3 (0.00-0.68); EOSINOPHILS PERCENT AUTO 28 % (0-6); Hematocrit 34.1 % (37.0-53.0); Hemoglobin 10.9 g/dL (13.5-17.5); IMMATURE GRAN ABSOLUTE AUTO 0.04 K/mm3 (0.00-0.10); IMMATURE GRAN PERCENT AUTO 0 % (0-1); LYMPHOCYTES ABSOLUTE AUTO 0.69 K/mm3 (0.84-5.20); LYMPHOCYTES PERCENT AUTO 7 % (21-46); MONOCYTES ABSOLUTE AUTO 0.69 K/mm3 (0.16-1.47); MONOCYTES PERCENT AUTO 7 % (4-13); Mean Corpuscular HGB 31.7 pg (26.0-34.0); Mean Corpuscular Volume 99 fL (80-100); Mean Platelet Volume 10.8 fL (9.1-12.4); NEUTROPHILS PERCENT AUTO 58 % (41-73); Platelet Count 121 K/mm3 (150-400); RDW Coefficient Variation 14.9 % (11.7-14.2); RDW Standard Deviation 53.6 fL (35.1-46.3); Red Blood Cell Count 3.44 M/mm3 (4.30-5.90); White Blood Cell Count 10.21 K/mm3 (4.00-11.30)
[2019-03-01 06:08] LABS: Alanine Aminotransfer (ALT/SGP 13 U/L (12-78); Albumin, Blood 2.5 g/dL (3.4-5.0); Albumin/Globulin Ratio 0.5 (0.8-1.8); Alk Phos 70 U/L (50-136); Anion Gap 4 mmol/L (6-16); Aspartate Aminotrans (AST/SGOT 17 U/L (12-37); Bilirubin, Total 0.5 mg/dL (0.1-1.0); Blood Urea Nitrogen 19 mg/dL (8-24); Bun/Creatinine Ratio 20.2 (12.0-20.0); CO2, Blood 30 mmol/L (21-32); Calcium, Blood 8.6 mg/dL (8.5-10.1); Chloride, Blood 105 mmol/L (98-108); Creatinine, Blood 0.94 mg/dL (0.60-1.20); Globulin, Blood 4.7 g/dL (2.2-4.0); Glomerular Filtration Rate >60 (60-); Glucose, Blood 178 mg/dL (70-99); Potassium, Blood 4.2 mmol/L (3.5-5.5); Sodium, Blood 139 mmol/L (136-145); Total Protein, Blood 7.2 g/dL (6.4-8.2)
--- NOTE | 2019-03-01 09:15 | NUR ---
Attempted to visit with pt. He is currently in the shower. His is at bedside and reports that he will be going home today. She has already contacted his PCP, Dr. Dubon's office, to set up a follow up appointment to discuss medications and plan moving forward. She still wishes she had a clear cut answer as to why he was having the CP. No needs per pt's at this time.
--- NOTE | 2019-03-01 18:26 | NUR ---
PT HAD A GOOD DAY TODAY, HE HAS BEEN A BIT QUIET AND WITHDRAWN ACCORDING TO FAMILY REPORT UPON VISIT. ASSESS NEURO, PT AWARE OF DATE, LOCATION, PRESIDENT AND SITUATION. DR. ZHANG VISITED WITH FAMILY AND WANTED PT TO GET UP AND WALK AROUND TODAY. THIS RN GOT PATIENT UP FOR TWO WALKS AROUND THE UNIT. PT TOLERATED WELL. VSS SHOWED MILD IMPROVEMENT AFTER WALK, SEE RECORD FOR DETAIL. PT HAS NOT REQUIRED O2 DURING THIS SHIFT AND IS ABLE TO GET UP WITH MIN ASSIST, HE AMBULATES WITH FWW. FAMILY ADVOCATING FOR IDEA THAT THE PT MAY BENEFIT FROM PT/OT EVALUATION AND POSSIBLE D/C WITH HOME CARE TO HELP ENCOURAGE INCREASED MOVEMENT AND REHABILITATION. WILL CONTINUE TO MONITOR AND GIVE REPORT TO NOC RN.
[2019-03-02 04:21] LABS: BASOPHILS ABSOLUTE AUTO 0.02 K/mm3 (0.00-0.23); BASOPHILS PERCENT AUTO 0 % (0-2); EOSINOPHILS ABSOLUTE AUTO 2.84 K/mm3 (0.00-0.68); EOSINOPHILS PERCENT AUTO 26 % (0-6); Hematocrit 33.2 % (37.0-53.0); Hemoglobin 10.5 g/dL (13.5-17.5); IMMATURE GRAN ABSOLUTE AUTO 0.04 K/mm3 (0.00-0.10); IMMATURE GRAN PERCENT AUTO 0 % (0-1); LYMPHOCYTES ABSOLUTE AUTO 0.92 K/mm3 (0.84-5.20); LYMPHOCYTES PERCENT AUTO 9 % (21-46); MONOCYTES ABSOLUTE AUTO 0.74 K/mm3 (0.16-1.47); MONOCYTES PERCENT AUTO 7 % (4-13); Mean Corpuscular HGB 31.4 pg (26.0-34.0); Mean Corpuscular HGB Conc 31.6 g/dL (31.5-36.5); Mean Corpuscular Volume 99 fL (80-100); Mean Platelet Volume 10.9 fL (9.1-12.4); NEUTROPHILS ABSOLUTE AUTO 6.21 K/mm3 (1.96-9.15); NEUTROPHILS PERCENT AUTO 58 % (41-73); Platelet Count 132 K/mm3 (150-400); RDW Coefficient Variation 14.9 % (11.7-14.2); RDW Standard Deviation 53.2 fL (35.1-46.3); Red Blood Cell Count 3.34 M/mm3 (4.30-5.90); White Blood Cell Count 10.77 K/mm3 (4.00-11.30)
[2019-03-02 04:43] LABS: Alanine Aminotransfer (ALT/SGP 13 U/L (12-78); Albumin, Blood 2.4 g/dL (3.4-5.0); Albumin/Globulin Ratio 0.5 (0.8-1.8); Alk Phos 77 U/L (50-136); Anion Gap 7 mmol/L (6-16); Aspartate Aminotrans (AST/SGOT 11 U/L (12-37); Bilirubin, Total 0.4 mg/dL (0.1-1.0); Blood Urea Nitrogen 25 mg/dL (8-24); CO2, Blood 27 mmol/L (21-32); Calcium, Blood 8.5 mg/dL (8.5-10.1); Chloride, Blood 105 mmol/L (98-108); Creatinine, Blood 1.04 mg/dL (0.60-1.20); Globulin, Blood 4.7 g/dL (2.2-4.0); Glomerular Filtration Rate >60 (60-); Glucose, Blood 228 mg/dL (70-99); Magnesium, Blood 2.1 mg/dL (1.6-2.4); Phosphorus, Blood 4.5 mg/dL (2.5-4.9); Potassium, Blood 4.3 mmol/L (3.5-5.5); Sodium, Blood 139 mmol/L (136-145); Total Protein, Blood 7.1 g/dL (6.4-8.2)
--- NOTE | 2019-03-02 06:18 | NUR ---
PCU NOC SHIFT SUMMARY PATIENT ALERT AND ORIENTED TO SELF, LOCATION AND DATE - PATIENT HAS FLAT AFFECT. RESP E/U AT REST ON ROOM AIR. PATEINT WORE CPAP T/O SHIFT AND TOLERATED WELL. PATIENT STAND BY ASSIST TO BATHROOM AND CHAIR - TOLERATES WELL. PATIENT HAS CHRONIC BACK PAIN THAT WAS RELIEVED WITH MEDICATION PER EMAR BUT DENIES ANY CHEST PAIN OR DISCOMFORT T/O SHIFT. WILL CONTINUE TO MONITOR AND REPORT TO DAYSHIFT RN.
--- NOTE | 2019-03-02 09:24 | NUR ---
NURSING PCU DAYSHIFT: Assumed care of pt at approx 0700. A/O, pleasant, cooperative w/care. C/O 09/16 pain r/t LOPEZ, treating w/tylenol as ordered. General weakness noted. Ambulates w/one staff assist using FWW. Skin is fragile, no breakdown noted. L radial site r/t recent angiogram, small ooze, wrist board in place. Tele in place, WAP, no c/o CP/pressure, SBP 130's prior to a.m., trace BLE edema. L/S w/wheezes t/o, dim in mid and lower lobes, fine bibasilar crackles, c/o dyspnea, respirations shallow, occ SUPERVISOR RECEIVING AND PROCESSING cough. Abd SNT, BT+, incontinent of urine, attends in place. PIV x1, s/l. Pt and spouse educated regarding importance of deep breathing exercises and getting OOB, pt and spouse verbalized understanding. Pt assisted OOB to chair, tolerated well, breathing exercises completed. Pt and s/o deny any current needs or questions regarding plan of care, call light in reach, awaiting rounding from PMD, cont to monitor for any changes.
--- NOTE | 2019-03-02 18:31 | NUR ---
NURSING PCU DAYSHIFT SUMMARY: Pt has done well t/o the shift. After education this a.m. regarding importance of deep breathing exercises and spending more time OOB, pt has verbalized and demonstrated understanding. Spent much of the day OOB in the chair along w/ambulated halls with s/o. Respiratory status has improved and pt states noted improvement in respirations w/no c/o dyspnea. No s/s of acute distress at this time. Call light in reach and pt is able to use w/o difficulty. Pt denies any current questions/needs, cont to monitor until rpt is given to NOC RN.
[2019-03-03 05:12] LABS: BASOPHILS ABSOLUTE AUTO 0.03 K/mm3 (0.00-0.23); BASOPHILS PERCENT AUTO 0 % (0-2); EOSINOPHILS ABSOLUTE AUTO 3.01 K/mm3 (0.00-0.68); EOSINOPHILS PERCENT AUTO 25 % (0-6); Hematocrit 34.7 % (37.0-53.0); IMMATURE GRAN ABSOLUTE AUTO 0.04 K/mm3 (0.00-0.10); IMMATURE GRAN PERCENT AUTO 0 % (0-1); LYMPHOCYTES ABSOLUTE AUTO 0.92 K/mm3 (0.84-5.20); LYMPHOCYTES PERCENT AUTO 8 % (21-46); MONOCYTES PERCENT AUTO 7 % (4-13); Mean Corpuscular HGB 31.2 pg (26.0-34.0); Mean Corpuscular HGB Conc 31.7 g/dL (31.5-36.5); Mean Corpuscular Volume 98 fL (80-100); Mean Platelet Volume 10.9 fL (9.1-12.4); NEUTROPHILS ABSOLUTE AUTO 7.25 K/mm3 (1.96-9.15); NEUTROPHILS PERCENT AUTO 60 % (41-73); Platelet Count 146 K/mm3 (150-400); RDW Coefficient Variation 15.3 % (11.7-14.2); RDW Standard Deviation 54.3 fL (35.1-46.3); Red Blood Cell Count 3.53 M/mm3 (4.30-5.90); White Blood Cell Count 12.05 K/mm3 (4.00-11.30)
[2019-03-03 05:34] LABS: Magnesium, Blood 2.1 mg/dL (1.6-2.4); Troponin I 0.095 ng/mL (0.000-0.040)
[2019-03-03 05:35] LABS: Alanine Aminotransfer (ALT/SGP 10 U/L (12-78); Albumin, Blood 2.5 g/dL (3.4-5.0); Albumin/Globulin Ratio 0.5 (0.8-1.8); Alk Phos 81 U/L (50-136); Anion Gap 7 mmol/L (6-16); Aspartate Aminotrans (AST/SGOT 9 U/L (12-37); Bilirubin, Total 0.5 mg/dL (0.1-1.0); Blood Urea Nitrogen 31 mg/dL (8-24); Bun/Creatinine Ratio 26.1 (12.0-20.0); CO2, Blood 27 mmol/L (21-32); Calcium, Blood 8.6 mg/dL (8.5-10.1); Chloride, Blood 106 mmol/L (98-108); Creatinine, Blood 1.19 mg/dL (0.60-1.20); Glomerular Filtration Rate >60 (60-); Glucose, Blood 160 mg/dL (70-99); Phosphorus, Blood 4.6 mg/dL (2.5-4.9); Potassium, Blood 4.5 mmol/L (3.5-5.5); Sodium, Blood 140 mmol/L (136-145); Total Protein, Blood 7.5 g/dL (6.4-8.2)
--- NOTE | 2019-03-03 07:51 | NUR ---
SHIFT SUMMARY PATIENT PLEASENT AND COOPERATIVE THROUGHOUT THE NIGHT. PATIENT UP TO THE BATHROOM SEVERAL TIMES WITH ONE ASSIST AND FWW. PATIENT APPEARED TO SLEEP WELL LAST NIGHT. PATIENT USED HIS CPAP FOR MOST OF THE NIGHT. CONTINUOUS BIOX IN PLACE. VITAL SIGNS CHARTED. REPORT GIVEN TO ONCOMING RN.
--- NOTE | 2019-03-03 18:57 | NUR ---
PT HAD A GOOD DAY TODAY, HE HAS BEEN UP WALKING SEVERAL TIMES TODAY AND SAT IN THE CHAIR FOR A GOOD MAJORITY OF THE DAY. AT BEDSIDE HAS BEEN SUPPORTIVE. PT CONTINUES ON ROOM AIR AND NEEDS SOME SUPPORT WHEN GETTING UP AND REPOSITIONING, BUT IS USING THE FWW WELL AND GETTING AROUND WITHOUT ANY PROBLEM. WILL CONTINUE TO MONITOR AND GIVE REPORT TO NOC RN.
--- NOTE | 2019-03-04 07:17 | NUR ---
SHIFT SUMMARY PATIENT PLEASENT AND COOPERATIVE THROUGHOUT THE NIGHT. PATIENT APPEARED TO SLEEP WELL LAST NIGHT. PATIENT APPEARED TO SLEEP ON AND OFF THROUGHOUT THE NIGHT. PATIENT USED HIS CPAP FOR A PORTION OF THE NIGHT BUT REFUSED IT FOR THE SECOND HALF. CONTINUOUS BOIX IN PLACE. PATIENT UP TO THE BATHROOM WITH ONE ASSIST, FWW, AND A GAIT BELT SEVERAL TIMES LAST NIGHT. VITAL SIGNS CHARTED. REPORT GIVEN TO ONCOMING RN.
[2019-03-04 10:30] LABS: BASOPHILS ABSOLUTE AUTO 0.03 K/mm3 (0.00-0.23); BASOPHILS PERCENT AUTO 0 % (0-2); EOSINOPHILS ABSOLUTE AUTO 1.93 K/mm3 (0.00-0.68); EOSINOPHILS PERCENT AUTO 16 % (0-6); Hematocrit 32.2 % (37.0-53.0); Hemoglobin 10.2 g/dL (13.5-17.5); IMMATURE GRAN ABSOLUTE AUTO 0.06 K/mm3 (0.00-0.10); IMMATURE GRAN PERCENT AUTO 1 % (0-1); LYMPHOCYTES ABSOLUTE AUTO 0.85 K/mm3 (0.84-5.20); LYMPHOCYTES PERCENT AUTO 7 % (21-46); MONOCYTES ABSOLUTE AUTO 0.88 K/mm3 (0.16-1.47); MONOCYTES PERCENT AUTO 8 % (4-13); Mean Corpuscular HGB Conc 31.7 g/dL (31.5-36.5); Mean Platelet Volume 11.5 fL (9.1-12.4); NEUTROPHILS ABSOLUTE AUTO 8.06 K/mm3 (1.96-9.15); NEUTROPHILS PERCENT AUTO 68 % (41-73); Platelet Count 148 K/mm3 (150-400); RDW Coefficient Variation 15.2 % (11.7-14.2); RDW Standard Deviation 55.2 fL (35.1-46.3); Red Blood Cell Count 3.19 M/mm3 (4.30-5.90); White Blood Cell Count 11.81 K/mm3 (4.00-11.30)
[2019-03-04 10:32] LABS: Mean Corpuscular Volume 101 fL (80-100)
--- NOTE | 2019-03-04 16:43 | NUR ---
SHIFT SUMMARY PT RESTING IN BED THROUGHOUT THE DAY. ALERT AND ORIENTED X3, SLOW TO RESPOND AT TIMES. AFFECT IS FLAT AT TIMES, BUT PT DOES RESPOND APPROPRIATELY AND FOLLOWS COMMANDS APPROPRIATELY. UP TO CHAIR FOR BREAKFAST AND AMBULATED TO BATHROOM WITH 1 ASSIST AND FWW. DENIES PAIN THROUGHOUT THE DAY. 1+ PITTING EDEMA TO BLE. LUNG SOUNDS CLEAR, DIMINISHED BASES. LEFT WRIST SOFT, NO BLEED OR HEMATOMA, OPSITE DRSG AND ARMBOARD CDI. WILL CONTINUE TO MONITOR.
--- NOTE | 2019-03-04 19:23 | NUR ---
PT STABLE FOR TRANSFER TO MEDICAL FLOOR. REPORT CALLED TO SAKSHI CALDERON ON MEDICAL FLOOR. PT TRANSFERED VIA WHEELCHAIR TO MEDICAL FLOOR WITH BELONGINGS AND MEDS.
[2019-03-05 04:36] LABS: BASOPHILS ABSOLUTE AUTO 0.03 K/mm3 (0.00-0.23); BASOPHILS PERCENT AUTO 0 % (0-2); EOSINOPHILS ABSOLUTE AUTO 2.31 K/mm3 (0.00-0.68); EOSINOPHILS PERCENT AUTO 20 % (0-6); Hematocrit 33.2 % (37.0-53.0); Hemoglobin 10.4 g/dL (13.5-17.5); IMMATURE GRAN ABSOLUTE AUTO 0.07 K/mm3 (0.00-0.10); IMMATURE GRAN PERCENT AUTO 1 % (0-1); LYMPHOCYTES ABSOLUTE AUTO 0.95 K/mm3 (0.84-5.20); LYMPHOCYTES PERCENT AUTO 8 % (21-46); MONOCYTES ABSOLUTE AUTO 0.93 K/mm3 (0.16-1.47); MONOCYTES PERCENT AUTO 8 % (4-13); Mean Corpuscular HGB 31.6 pg (26.0-34.0); Mean Corpuscular HGB Conc 31.3 g/dL (31.5-36.5); Mean Corpuscular Volume 101 fL (80-100); NEUTROPHILS ABSOLUTE AUTO 7.34 K/mm3 (1.96-9.15); NEUTROPHILS PERCENT AUTO 63 % (41-73); Platelet Count 163 K/mm3 (150-400); RDW Coefficient Variation 15.1 % (11.7-14.2); RDW Standard Deviation 55.5 fL (35.1-46.3); Red Blood Cell Count 3.29 M/mm3 (4.30-5.90); White Blood Cell Count 11.63 K/mm3 (4.00-11.30)
--- NOTE | 2019-03-05 06:15 | NUR ---
SHIFT SUMMARY & TRANSFER NOTE PT TRANSFERRED FROM U05 TO RM 356. R ARM IMMBOLIZER IN PLACE TO PROTECT R RADIAL ACCESS SITE FOR ANGIOGRAM. TELE IN PALCE; A FIB c PVCs @ 90 BPM. IRR HS. LS CLEAR, DIM IN BASES, RESP E/U ON RA. CPAP AT NIGHT. CBG 125 TONIGHT, NO COV INDICATED. DENIES ANY CHEST PAIN OR PRESSURE. PT RESTING IN BED AT THIS TIME, CALL LT IN REACH. NO OTHER CHANGES TO REPORT, WILL CONT TO MONITOR AND PROVIDE CARE UNTIL PRESUMED BY ONCOMING RN.
[2019-03-05] MEDS ORDERED: ASPI81CH PO (11:05)
[2019-03-05] MEDS ORDERED: RANO500T PO (11:05)
[2019-03-05] MEDS ORDERED: CARV25 PO (11:05)
[2019-03-05] MEDS ORDERED: TROSPIUM CHLORI20 MG PO (11:06)
--- NOTE | 2019-03-05 13:06 | NUR ---
HE DISCHARGED HOME WITH BELONGINGS AND INSTRUCTIONS AT 1243. HIS AND DAUGHTER LISTENED TO ALL THE INSTRUCTIONS. HE ATE SOME LUNCH BEFORE HE LEFT. CBG'S STABLE. TELE AFIB OVER 100 WHEN AMBULATORY, IN THE 90'S AT REST. NO CP. LW ANGIO SITE BRUISED BUT FLAT, NO HEMATOMA, NO PAIN. THEY WILL BLENDING TANK TENDER HIS NEW RX'S TODAY.
== END 2019-03-05 12:40 | disposition home health service (06) | DRG 281 ==
LOC: ER 19:14 → PCU 23:04 → MEDS 03-04 19:33
PROVIDERS: Emergency Medicine; Family Medicine; Nurse Practitioner Acute Care; Physician Assistant; Student in an Organized Health Care Education/Training Program; ADMIT Internal Medicine
PROC: B3101ZZ Fluoroscopy of Thoracic Aorta using Low Osmolar Contrast (ICD-10-PCS; principal; 2019-02-28)
PROC: B2111ZZ Fluoroscopy of Multiple Coronary Arteries using Low Osmolar Contrast (ICD-10-PCS; 2019-02-28)
DX: I22.2 Subsequent non-ST elevation (NSTEMI) myocardial infarction (principal); K50.90 Crohn's disease, unspecified, without complications; I50.30 Unspecified diastolic (congestive) heart failure; I48.0 Paroxysmal atrial fibrillation; G47.33 Obstructive sleep apnea (adult) (pediatric); Z66 Do not resuscitate; E11.65 Type 2 diabetes mellitus with hyperglycemia; J44.9 Chronic obstructive pulmonary disease, unspecified; I25.10 Atherosclerotic heart disease of native coronary artery without angina pectoris; Z95.3 Presence of xenogenic heart valve; Z90.49 Acquired absence of other specified parts of digestive tract; Z79.84 Long term (current) use of oral hypoglycemic drugs; I11.0 Hypertensive heart disease with heart failure
CPT/HCPCS: 36415; 71046; 74176; 80048; 80053; 82550; 82553; 82947; 83690; 83735; 83880; 84100; 84484; 85025; 85610; 93005; 93010; 93308; 93321; 93455; 94640; 94660; 94762; 97116; 97162; 97166; 97530; 97535; 99152; 99153; 99284-25; A9270; C1769; C1894; J1644; J2250; J3010; J7030; J7500; Q9967

== ENCOUNTER 2019-05-07 06:37 | Day surgery (SDC) | payer MEDICARE, BC ==
[~2019-05-07] VITALS: Ht 185.4 cm; Wt 105.0 kg
[~2019-05-07 06:37] MED LIST changes: +AMLO5 PO; +ATOR40TA PO; +CARV25 PO; +FLUT1DIS2 INH; +GLIP5 PO; +LIRA0.6P SC; +LOPE2C PO; +METF500 PO; +METO25 PO; +MICROZIDE12.5 MG PO; +MYRBETRIQ25 MG PO; +Omeprazole20 M1 PO; +POTCHL10ER PO; +Questran4 GM PO; +RANO500T PO; +TROSPIUM CHLORI20 MG PO; +XARELTO20 MG PO
[2019-05-07] MEDS ORDERED: Aldactone25 MG PO (06:47)
[2019-05-07] MEDS ORDERED: Lasix20 MG PO (06:47)
[2019-05-07] MEDS ORDERED: Amiodarone HCl200 MG PO (06:48)
--- NOTE | 2019-05-07 08:00 | NUR ---
PT TOLERATES CARDIOVERSION WELL. VSS. NADN. PT IN SINUS RHYTHM ON MONITOR. EKG OBTAINED. PT AND S/O VERBALIZES UNDERSTANDING WRITTEN AND VERBAL ORDERS.
== END 2019-05-07 22:51 | disposition home or self-care (01) ==
LOC: MHTC 06:37
DX: I48.19 Other persistent atrial fibrillation (principal); I11.0 Hypertensive heart disease with heart failure; I50.9 Heart failure, unspecified; E11.9 Type 2 diabetes mellitus without complications; I25.10 Atherosclerotic heart disease of native coronary artery without angina pectoris; G47.30 Sleep apnea, unspecified; Z95.1 Presence of aortocoronary bypass graft; Z88.5 Allergy status to narcotic agent; Z88.8 Allergy status to other drugs, medicaments and biological substances; Z99.89 Dependence on other enabling machines and devices
CPT/HCPCS: 82947; 92960; 93005; 93010; J2704; J7120

== ENCOUNTER 2019-05-12 01:55 | Emergency (ER) | payer OTHER, MEDICARE, BC ==
[~2019-05-12] VITALS: Ht 185.4 cm; Wt 104.3 kg
[~2019-05-12 01:55] MED LIST changes: +Aldactone25 MG PO; +Amiodarone HCl200 MG PO; +Lasix20 MG PO
[2019-05-12 03:19] LABS: BASOPHILS ABSOLUTE AUTO 0.03 K/mm3 (0.00-0.23); BASOPHILS PERCENT AUTO 0 % (0-2); EOSINOPHILS ABSOLUTE AUTO 0.38 K/mm3 (0.00-0.68); EOSINOPHILS PERCENT AUTO 4 % (0-6); Hematocrit 35.3 % (37.0-53.0); IMMATURE GRAN ABSOLUTE AUTO 0.05 K/mm3 (0.00-0.10); IMMATURE GRAN PERCENT AUTO 1 % (0-1); LYMPHOCYTES ABSOLUTE AUTO 0.94 K/mm3 (0.84-5.20); LYMPHOCYTES PERCENT AUTO 10 % (21-46); MONOCYTES PERCENT AUTO 8 % (4-13); Mean Corpuscular HGB 33.2 pg (26.0-34.0); Mean Corpuscular HGB Conc 31.2 g/dL (31.5-36.5); Mean Corpuscular Volume 107 fL (80-100); Mean Platelet Volume 11.9 fL (9.1-12.4); NEUTROPHILS ABSOLUTE AUTO 7.73 K/mm3 (1.96-9.15); NEUTROPHILS PERCENT AUTO 78 % (41-73); Platelet Count 111 K/mm3 (150-400); RDW Coefficient Variation 15.8 % (11.7-14.2); RDW Standard Deviation 62.4 fL (35.1-46.3); Red Blood Cell Count 3.31 M/mm3 (4.30-5.90); White Blood Cell Count 9.93 K/mm3 (4.00-11.30)
[2019-05-12 03:22] LABS: Source, Urine Clean Catch
[2019-05-12 03:24] LABS: Bilirubin, Urine Neg (Neg); Blood, Urine 4+ (Neg); Glucose Qualitative, Urine Neg (Neg); Ketones, Urine Neg (Neg); Leukocyte Esterase, Urine 3+ (Neg); Nitrite, Urine Pos (Neg); Protein, Urine 2+ (Neg); Specific Gravity, Urine 1.015 (1.003-1.022); Urobilinogen, Urine NORM (Normal)
[2019-05-12 03:47] LABS: Troponin I <0.015 ng/mL (0.000-0.040)
[2019-05-12 03:48] LABS: Appearance, Urine Cloudy (Clear); Color, Urine Yellow (P-Yellow)
[2019-05-12 03:50] LABS: Squamous Epithelial Cells Rare /hpf (Few)
[2019-05-12 03:51] LABS: Amorphous Light (0-Heavy); Bacteria Few /hpf; Triple Phosphate Crystals Mod /hpf
[2019-05-12 03:59] LABS: Alanine Aminotransfer (ALT/SGP 19 U/L (12-78); Albumin, Blood 3.1 g/dL (3.4-5.0); Albumin/Globulin Ratio 0.7 (0.8-1.8); Alk Phos 67 U/L (50-136); Anion Gap 5 mmol/L (6-16); Aspartate Aminotrans (AST/SGOT 21 U/L (12-37); Bilirubin, Total 0.5 mg/dL (0.1-1.0); Blood Urea Nitrogen 34 mg/dL (8-24); Bun/Creatinine Ratio 26.6 (12.0-20.0); CO2, Blood 27 mmol/L (21-32); Calcium, Blood 8.7 mg/dL (8.5-10.1); Chloride, Blood 110 mmol/L (98-108); Creatinine, Blood 1.28 mg/dL (0.60-1.20); Globulin, Blood 4.2 g/dL (2.2-4.0); Glomerular Filtration Rate 58 (60-); Glucose, Blood 35 mg/dL (70-99); Potassium, Blood 4.6 mmol/L (3.5-5.5); Sodium, Blood 142 mmol/L (136-145); Total Protein, Blood 7.3 g/dL (6.4-8.2)
[2019-05-12] MEDS ORDERED: CEFD300 PO (05:30)
== END 2019-05-12 07:52 | disposition home or self-care (01) ==
LOC: ER 01:55
PROVIDERS: Emergency Medicine
DX: S51.012A Laceration without foreign body of left elbow, initial encounter (principal); S80.212A Abrasion, left knee, initial encounter; E11.649 Type 2 diabetes mellitus with hypoglycemia without coma; N39.0 Urinary tract infection, site not specified; I10 Essential (primary) hypertension; I48.91 Unspecified atrial fibrillation; Z95.1 Presence of aortocoronary bypass graft; Z88.5 Allergy status to narcotic agent; Z88.8 Allergy status to other drugs, medicaments and biological substances; Z79.899 Other long term (current) drug therapy; Z79.84 Long term (current) use of oral hypoglycemic drugs; Z79.01 Long term (current) use of anticoagulants; W18.39XA Other fall on same level, initial encounter
CPT/HCPCS: 36415; 73560-LT; 80053; 81001; 82947; 84484; 85025; 87077; 87086; 87186; 93005; 93010; 96361; 96365; 96375; 99284-25; J0696; J7030; J7799

== ENCOUNTER → 2019-06-17 | Outpatient (CLI) | payer MEDICARE, BC ==
[~2019-06-17] MED LIST changes: +CEFD300 PO
== END | disposition home or self-care (01) ==
LOC: LAB SHORT 13:25 → LAB EV 13:25
DX: R30.9 Painful micturition, unspecified (principal)
CPT/HCPCS: 87077; 87086; 87186

== ENCOUNTER 2019-06-26 14:55 | Emergency (ER) | payer OTHER, MEDICARE, BC ==
[~2019-06-26] VITALS: Ht 185.4 cm; Wt 104.3 kg
[2019-06-26 15:45] LABS: BASOPHILS ABSOLUTE AUTO 0.03 K/mm3 (0.00-0.23); BASOPHILS PERCENT AUTO 0 % (0-2); EOSINOPHILS ABSOLUTE AUTO 0.45 K/mm3 (0.00-0.68); EOSINOPHILS PERCENT AUTO 4 % (0-6); Hematocrit 35.2 % (37.0-53.0); Hemoglobin 11.2 g/dL (13.5-17.5); IMMATURE GRAN ABSOLUTE AUTO 0.12 K/mm3 (0.00-0.10); IMMATURE GRAN PERCENT AUTO 1 % (0-1); LYMPHOCYTES ABSOLUTE AUTO 0.99 K/mm3 (0.84-5.20); LYMPHOCYTES PERCENT AUTO 9 % (21-46); MONOCYTES ABSOLUTE AUTO 0.86 K/mm3 (0.16-1.47); MONOCYTES PERCENT AUTO 8 % (4-13); Mean Corpuscular HGB 34.7 pg (26.0-34.0); Mean Corpuscular HGB Conc 31.8 g/dL (31.5-36.5); Mean Corpuscular Volume 109 fL (80-100); Mean Platelet Volume 11.2 fL (9.1-12.4); NEUTROPHILS ABSOLUTE AUTO 8.32 K/mm3 (1.96-9.15); NEUTROPHILS PERCENT AUTO 77 % (41-73); Platelet Count 141 K/mm3 (150-400); RDW Coefficient Variation 13.9 % (11.7-14.2); Red Blood Cell Count 3.23 M/mm3 (4.30-5.90); White Blood Cell Count 10.77 K/mm3 (4.00-11.30)
[2019-06-26 16:16] LABS: Anion Gap 6 mmol/L (6-16); Blood Urea Nitrogen 29 mg/dL (8-24); Bun/Creatinine Ratio 28.4 (12.0-20.0); CO2, Blood 26 mmol/L (21-32); Calcium, Blood 8.6 mg/dL (8.5-10.1); Chloride, Blood 107 mmol/L (98-108); Creatinine, Blood 1.02 mg/dL (0.60-1.20); Glomerular Filtration Rate >60 (60-); Glucose, Blood 224 mg/dL (70-99); Sodium, Blood 139 mmol/L (136-145); Troponin I <0.015 ng/mL (0.000-0.040)
[2019-06-26] MEDS ORDERED: Prednisone20 MG PO (16:50)
== END 2019-06-26 17:01 | disposition home or self-care (01) ==
LOC: ER 14:55
PROVIDERS: Physician Assistant
DX: J44.1 Chronic obstructive pulmonary disease with (acute) exacerbation (principal); I10 Essential (primary) hypertension; N40.0 Benign prostatic hyperplasia without lower urinary tract symptoms; G47.33 Obstructive sleep apnea (adult) (pediatric); Z88.5 Allergy status to narcotic agent; Z88.8 Allergy status to other drugs, medicaments and biological substances; Z88.1 Allergy status to other antibiotic agents; Z79.899 Other long term (current) drug therapy; Z99.89 Dependence on other enabling machines and devices; Z79.84 Long term (current) use of oral hypoglycemic drugs
CPT/HCPCS: 36415; 71046; 80048; 83880; 84484; 85025; 93005; 93010; 94640; 99285-25

== ENCOUNTER → 2019-07-17 | Outpatient (CLI) | payer MEDICARE, BC ==
[~2019-07-17] MED LIST changes: +HYDCHL25 PO; +MYRBETRIQ50 MG PO; +Prednisone20 MG PO; +TROSPIUM CHLORI20 M1 PO
[2019-07-17 10:39] LABS: Source, Urine Clean Catch
[2019-07-17 11:46] LABS: Appearance, Urine Bloody (Clear); Bilirubin, Urine Neg (Neg); Blood, Urine 5+ (Neg); Color, Urine Red (P-Yellow); Glucose Qualitative, Urine 2+ (Neg); Ketones, Urine Neg (Neg); Leukocyte Esterase, Urine 1+ (Neg); Nitrite, Urine Neg (Neg); Protein, Urine 4+ (Neg); Urobilinogen, Urine NORM (Normal)
[2019-07-17 11:55] LABS: Red Blood Cells, Urine TNTC /hpf (0-2); Squamous Epithelial Cells Not Seen /hpf (Few)
[2019-07-17 11:56] LABS: Bacteria Mod /hpf
== END | disposition home or self-care (01) ==
LOC: OLS 10:37 → LAB SHORT 10:37
PROVIDERS: Physician Assistant
DX: N39.0 Urinary tract infection, site not specified (principal); R31.0 Gross hematuria
CPT/HCPCS: 81001; 87086

== ENCOUNTER 2019-08-16 12:31 | Emergency (ER) | payer MEDICARE, BC ==
[~2019-08-16] VITALS: Ht 185.4 cm; Wt 104.3 kg
[~2019-08-16 12:31] MED LIST changes: -HYDCHL25 PO; -MYRBETRIQ50 MG PO; -TROSPIUM CHLORI20 M1 PO
[2019-08-16 12:57] LABS: BASOPHILS ABSOLUTE AUTO 0.03 K/mm3 (0.00-0.23); BASOPHILS PERCENT AUTO 0 % (0-2); EOSINOPHILS ABSOLUTE AUTO 0.55 K/mm3 (0.00-0.68); EOSINOPHILS PERCENT AUTO 8 % (0-6); Hematocrit 23.8 % (37.0-53.0); IMMATURE GRAN ABSOLUTE AUTO 0.03 K/mm3 (0.00-0.10); IMMATURE GRAN PERCENT AUTO 0 % (0-1); LYMPHOCYTES ABSOLUTE AUTO 0.88 K/mm3 (0.84-5.20); LYMPHOCYTES PERCENT AUTO 12 % (21-46); MONOCYTES ABSOLUTE AUTO 0.66 K/mm3 (0.16-1.47); MONOCYTES PERCENT AUTO 9 % (4-13); Mean Corpuscular HGB 31.8 pg (26.0-34.0); Mean Corpuscular HGB Conc 29.4 g/dL (31.5-36.5); Mean Corpuscular Volume 108 fL (80-100); Mean Platelet Volume 12.1 fL (9.1-12.4); NEUTROPHILS ABSOLUTE AUTO 5.13 K/mm3 (1.96-9.15); NEUTROPHILS PERCENT AUTO 70 % (41-73); Platelet Count 151 K/mm3 (150-400); RDW Coefficient Variation 14.2 % (11.7-14.2); RDW Standard Deviation 56.3 fL (35.1-46.3); White Blood Cell Count 7.28 K/mm3 (4.00-11.30)
[2019-08-16] MEDS ORDERED: Aspir 8181 MG PO (13:04)
[2019-08-16] MEDS ORDERED: HYDCHL25 PO (13:06)
[2019-08-16] MEDS ORDERED: MYRBETRIQ50 MG PO (13:08)
[2019-08-16] MEDS ORDERED: RANO500T PO (13:09)
[2019-08-16] MEDS ORDERED: TROSPIUM CHLORI20 M1 PO (13:10)
[2019-08-16 13:18] LABS: Alanine Aminotransfer (ALT/SGP 15 U/L (12-78); Albumin/Globulin Ratio 0.8 (0.8-1.8); Alk Phos 48 U/L (50-136); Anion Gap 4 mmol/L (6-16); Aspartate Aminotrans (AST/SGOT 13 U/L (12-37); Bilirubin, Total 0.4 mg/dL (0.1-1.0); Blood Urea Nitrogen 24 mg/dL (8-24); Bun/Creatinine Ratio 21.1 (12.0-20.0); CO2, Blood 28 mmol/L (21-32); Calcium, Blood 8.3 mg/dL (8.5-10.1); Chloride, Blood 110 mmol/L (98-108); Creatinine, Blood 1.14 mg/dL (0.60-1.20); Globulin, Blood 3.6 g/dL (2.2-4.0); Glomerular Filtration Rate >60 (60-); Glucose, Blood 143 mg/dL (70-99); Potassium, Blood 5.1 mmol/L (3.5-5.5); Sodium, Blood 142 mmol/L (136-145); Total Protein, Blood 6.6 g/dL (6.4-8.2)
[2019-08-16 13:39] LABS: Troponin I <0.015 ng/mL (0.000-0.040)
== END 2019-08-16 14:52 | disposition home or self-care (01) ==
LOC: ER 12:31
PROVIDERS: Emergency Medicine
DX: J44.9 Chronic obstructive pulmonary disease, unspecified (principal); D50.9 Iron deficiency anemia, unspecified; K50.90 Crohn's disease, unspecified, without complications; Z88.5 Allergy status to narcotic agent; Z88.8 Allergy status to other drugs, medicaments and biological substances; Z79.82 Long term (current) use of aspirin; Z79.899 Other long term (current) drug therapy; I10 Essential (primary) hypertension; E11.9 Type 2 diabetes mellitus without complications; I48.91 Unspecified atrial fibrillation; Z79.84 Long term (current) use of oral hypoglycemic drugs
CPT/HCPCS: 71046; 80053; 83880; 84484; 85025; 86850; 86900; 86901; 93005; 93010; 99284-25

== ENCOUNTER 2020-01-08 09:40 | Day surgery (SDC) | payer MEDICARE, BC ==
[~2020-01-08] VITALS: Ht 185.4 cm; Wt 100.0 kg
[~2020-01-08 09:40] MED LIST changes: +ALBU2.5V5 INH; +DRON400T PO; +FURO40 PO; +GLIP2.5ER PO; +HYDCHL25 PO; +MYRBETRIQ50 MG PO; +TROSPIUM CHLORI20 M1 PO
--- NOTE | 2020-01-08 12:55 | NUR ---
01/08/20 1255 Kaylin Holcomb PATIENT REQUIRED HELP GETTING CLEANED UP AND GETTING DRESSED. HE WAS STABLE AND ABLE TO TRANSFER WITH HELP. HE REQUESTED TRANSPORT CHAIR TO THE CAR. PATIENT DISCHARGED IN STABLE CONDITION
== END 2020-01-08 12:41 | disposition home or self-care (01) ==
LOC: ORSCSDS 09:40
PROVIDERS: Internal Medicine Gastroenterology
PROC: 0DBN8ZX Excision of Sigmoid Colon, Via Natural or Artificial Opening Endoscopic, Diagnostic (ICD-10-PCS; principal; 2020-01-08 11:00)
PROC: 0DB68ZX Excision of Stomach, Via Natural or Artificial Opening Endoscopic, Diagnostic (ICD-10-PCS; principal; 2020-01-08 11:00)
PROC: 0DBK8ZX Excision of Ascending Colon, Via Natural or Artificial Opening Endoscopic, Diagnostic (ICD-10-PCS; principal; 2020-01-08 11:00)
DX: D50.9 Iron deficiency anemia, unspecified (principal); D12.2 Benign neoplasm of ascending colon; D12.5 Benign neoplasm of sigmoid colon; K62.1 Rectal polyp; K21.9 Gastro-esophageal reflux disease without esophagitis; K50.90 Crohn's disease, unspecified, without complications; K64.8 Other hemorrhoids; K44.9 Diaphragmatic hernia without obstruction or gangrene; E11.9 Type 2 diabetes mellitus without complications; I10 Essential (primary) hypertension; I48.91 Unspecified atrial fibrillation; I25.10 Atherosclerotic heart disease of native coronary artery without angina pectoris; G47.33 Obstructive sleep apnea (adult) (pediatric); Z79.84 Long term (current) use of oral hypoglycemic drugs
CPT/HCPCS: 82947; J2704; J7120

== ENCOUNTER → 2020-05-05 | Outpatient (CLI) | payer MEDICARE, BC | END | disposition home or self-care (01) | LOC: LAB SHORT 09:04 → PLD 09:04 | DX: L57.0 Actinic keratosis (principal) | CPT/HCPCS: 88305 ==

== ENCOUNTER 2020-12-13 15:15 | Emergency (ER) | payer MEDICARE, BC ==
[~2020-12-13] VITALS: Ht 182.9 cm; Wt 108.9 kg
[2020-12-13 16:01] LABS: BASOPHILS ABSOLUTE AUTO 0.04 K/mm3 (0.00-0.23); BASOPHILS PERCENT AUTO 1 % (0-2); EOSINOPHILS ABSOLUTE AUTO 0.53 K/mm3 (0.00-0.68); EOSINOPHILS PERCENT AUTO 6 % (0-6); Hemoglobin 13.2 g/dL (13.5-17.5); IMMATURE GRAN ABSOLUTE AUTO 0.03 K/mm3 (0.00-0.10); IMMATURE GRAN PERCENT AUTO 0 % (0-1); LYMPHOCYTES ABSOLUTE AUTO 0.85 K/mm3 (0.84-5.20); LYMPHOCYTES PERCENT AUTO 10 % (21-46); MONOCYTES ABSOLUTE AUTO 0.74 K/mm3 (0.16-1.47); MONOCYTES PERCENT AUTO 9 % (4-13); Mean Corpuscular HGB 36.1 pg (26.0-34.0); Mean Corpuscular Volume 109 fL (80-100); Mean Platelet Volume 12.3 fL (9.1-12.4); NEUTROPHILS ABSOLUTE AUTO 6.25 K/mm3 (1.96-9.15); NEUTROPHILS PERCENT AUTO 74 % (41-73); Platelet Count 122 K/mm3 (150-400); RDW Coefficient Variation 13.1 % (11.7-14.2); RDW Standard Deviation 52.6 fL (35.1-46.3); Red Blood Cell Count 3.66 M/mm3 (4.30-5.90); White Blood Cell Count 8.44 K/mm3 (4.00-11.30)
[2020-12-13] MEDS ORDERED: PRED20 PO (16:10)
[2020-12-13 16:47] LABS: Alanine Aminotransfer (ALT/SGP 15 U/L (12-78); Albumin, Blood 3.3 g/dL (3.4-5.0); Albumin/Globulin Ratio 0.8 (0.8-1.8); Alk Phos 55 U/L (50-136); Anion Gap 3 mmol/L (6-16); Aspartate Aminotrans (AST/SGOT 14 U/L (12-37); Bilirubin, Total 0.6 mg/dL (0.1-1.0); Blood Urea Nitrogen 35 mg/dL (8-24); Bun/Creatinine Ratio 24.8 (12.0-20.0); CO2, Blood 32 mmol/L (21-32); Calcium, Blood 8.7 mg/dL (8.5-10.1); Chloride, Blood 106 mmol/L (98-108); Creatinine, Blood 1.41 mg/dL (0.60-1.20); Globulin, Blood 4.1 g/dL (2.2-4.0); Glomerular Filtration Rate 52 (60-); Glucose, Blood 121 mg/dL (70-99); Potassium, Blood 4.8 mmol/L (3.5-5.5); Sodium, Blood 141 mmol/L (136-145); Total Protein, Blood 7.4 g/dL (6.4-8.2)
[2020-12-13 16:48] LABS: Troponin I <0.015 ng/mL (0.000-0.040)
== END 2020-12-13 17:58 | disposition home or self-care (01) ==
LOC: ER 15:15
PROVIDERS: Physician Assistant
DX: J44.1 Chronic obstructive pulmonary disease with (acute) exacerbation (principal); I10 Essential (primary) hypertension; E11.9 Type 2 diabetes mellitus without complications; I48.91 Unspecified atrial fibrillation; Z79.899 Other long term (current) drug therapy; Z79.84 Long term (current) use of oral hypoglycemic drugs; Z88.5 Allergy status to narcotic agent; Z88.8 Allergy status to other drugs, medicaments and biological substances
CPT/HCPCS: 36415; 71045; 80053; 83735; 83880; 84484; 85025; 93005; 93010; 94640; 96374; 99285-25; J2930

== ENCOUNTER → 2021-03-01 | Outpatient (CLI) | payer MEDICARE, BC ==
[~2021-03-01] MED LIST changes: +PRED20 PO
== END | disposition home or self-care (01) ==
LOC: LAB SHORT 13:51 → LAB 13:51
DX: L72.0 Epidermal cyst (principal); L91.0 Hypertrophic scar
CPT/HCPCS: 88305

== ENCOUNTER → 2021-05-17 | Outpatient (CLI) | payer MEDICARE, BC | END | disposition home or self-care (01) | LOC: LAB 12:33 → LAB SHORT 12:33 | DX: C44.229 Squamous cell carcinoma of skin of left ear and external auricular canal (principal); L72.9 Follicular cyst of the skin and subcutaneous tissue, unspecified | CPT/HCPCS: 88304; 88305 ==

== ENCOUNTER 2021-12-24 02:19 | Inpatient (IN) | payer OTHER ==
[~2021-12-24] VITALS: Ht 177.8 cm; Wt 102.9 kg
[2021-12-24 02:41] LABS: BASOPHILS ABSOLUTE AUTO 0.08 K/mm3 (0.00-0.23); BASOPHILS PERCENT AUTO 1 % (0-2); EOSINOPHILS ABSOLUTE AUTO 0.58 K/mm3 (0.00-0.68); EOSINOPHILS PERCENT AUTO 5 % (0-6); Hematocrit 42.5 % (37.0-53.0); Hemoglobin 13.1 g/dL (13.5-17.5); IMMATURE GRAN ABSOLUTE AUTO 0.12 K/mm3 (0.00-0.10); IMMATURE GRAN PERCENT AUTO 1 % (0-1); LYMPHOCYTES ABSOLUTE AUTO 2.03 K/mm3 (0.84-5.20); LYMPHOCYTES PERCENT AUTO 16 % (21-46); MONOCYTES ABSOLUTE AUTO 1.37 K/mm3 (0.16-1.47); MONOCYTES PERCENT AUTO 11 % (4-13); Mean Corpuscular HGB 35.4 pg (26.0-34.0); Mean Corpuscular HGB Conc 30.8 g/dL (31.5-36.5); Mean Corpuscular Volume 115 fL (80-100); Mean Platelet Volume 12.1 fL (9.1-12.4); NEUTROPHILS ABSOLUTE AUTO 8.61 K/mm3 (1.96-9.15); NEUTROPHILS PERCENT AUTO 67 % (41-73); Platelet Count 125 K/mm3 (150-400); RDW Coefficient Variation 13.2 % (11.7-14.2); RDW Standard Deviation 56.2 fL (35.1-46.3); White Blood Cell Count 12.79 K/mm3 (4.00-11.30)
[2021-12-24 02:48] LABS: Base Excess Venous -1.4 mmol/L; Bicarbonate Venous 21.9 mmol/L (24.0-30.0); PCO2 Venous 71.1 mmHg (38-42); PO2 Venous 176 mmHg (38-42); pH Blood Venous 7.19 (7.34-7.37)
[2021-12-24 02:59] LABS: Albumin, Blood 3.4 g/dL (3.4-5.0); Albumin/Globulin Ratio 0.9 (0.8-1.8); Bilirubin, Total 0.4 mg/dL (0.1-1.0); Calcium, Blood 8.5 mg/dL (8.5-10.1); Creatinine, Blood 1.78 mg/dL (0.60-1.20); Globulin, Blood 3.7 g/dL (2.2-4.0); Potassium, Blood 4.7 mmol/L (3.5-5.5); Total Protein, Blood 7.1 g/dL (6.4-8.2)
[2021-12-24 03:42] LABS: Influenza A, PCR NEGATIVE (NEGATIVE); Influenza B, PCR NEGATIVE (NEGATIVE); Resp Syncytial Virus, PCR NEGATIVE (NEGATIVE); SARS-Cov-2 (COVID-19) PCR, MMC NEGATIVE (NEGATIVE)
--- NOTE | 2021-12-24 06:50 | NUR ---
TRANSFER NOTE REPORT TAKEN VIA TELEPHONE FROM SABINO CALDERON IN ED. PATIENT TO ROOM AT 0628. ACCOMPANIED BY RT WITH BIPAP. PATIENT'S VSS. NON-REBREATHER MASK WITH 13L OF O2 ON ARRIVAL. NO SIGNS OF RESPIRATORY DISTRESS. RT CHANGED TO AIRVO AT 40L AND 45%. BED IN LOWEST POSITION AND CALL LIGHT IN REACH.
[2021-12-24] MEDS ORDERED: COLE625 PO (13:57)
[2021-12-24] MEDS ORDERED: FINA5 PO (13:58)
[2021-12-24] MEDS ORDERED: FERSU300 PO (13:58)
[2021-12-24] MEDS ORDERED: GEMTESA75 MG PO (14:01)
[2021-12-24] MEDS ORDERED: JARDIANCE10 MG PO (14:01)
[2021-12-24] MEDS ORDERED: LOPE2C PO (14:02)
[2021-12-24] MEDS ORDERED: DRON400T (14:03)
[2021-12-24] MEDS ORDERED: Flomax0.4 MG PO (14:04)
--- NOTE | 2021-12-24 17:55 | NUR ---
SHIFT SUMMARY PT A&Ox4, VSS, AFIB 90'S. SPO2>90% TITRATED FROM 30L 30%FiO2 VIA AIRVO TO RA. PT ABLE TO AMBULATE TO BATHROOM SBA WITH FWW WITHOUT BECOMING SOB. PT WAS CONTINENT WITH MOMENTS INCONTINENCE. NO OTHER EVENTS DURING THIS SHIFT. WILL CONTINUE TO MONITOR AND PROVIDE CARE UNTIL REPORT TO NOC.
--- NOTE | 2021-12-24 22:26 | NUR ---
ASSUMPTION OF CARE ASSUMED CARE OF PT @ 1900. PT ALERT AND ORIENTED. WALKING TO BEDSIDE CHAIR WITH 1-PERSON SBA. PT ON RA c O2 SATS >90%, DENIES SOB. VSS. PT ON CPAP FOR BEDTIME, NO NEEDS/ COMPLAINTS AT THIS TIME. WILL MONITOR CLOSELY.
[2021-12-25 03:29] LABS: BASOPHILS ABSOLUTE AUTO 0.03 K/mm3 (0.00-0.23); BASOPHILS PERCENT AUTO 0 % (0-2); EOSINOPHILS PERCENT AUTO 0 % (0-6); Hematocrit 37.2 % (37.0-53.0); Hemoglobin 12.1 g/dL (13.5-17.5); IMMATURE GRAN ABSOLUTE AUTO 0.09 K/mm3 (0.00-0.10); IMMATURE GRAN PERCENT AUTO 1 % (0-1); LYMPHOCYTES ABSOLUTE AUTO 0.91 K/mm3 (0.84-5.20); LYMPHOCYTES PERCENT AUTO 7 % (21-46); MONOCYTES PERCENT AUTO 8 % (4-13); Mean Corpuscular HGB 35.1 pg (26.0-34.0); Mean Corpuscular HGB Conc 32.5 g/dL (31.5-36.5); Mean Platelet Volume 12.2 fL (9.1-12.4); NEUTROPHILS ABSOLUTE AUTO 11.09 K/mm3 (1.96-9.15); NEUTROPHILS PERCENT AUTO 84 % (41-73); Platelet Count 106 K/mm3 (150-400); RDW Coefficient Variation 12.9 % (11.7-14.2); RDW Standard Deviation 51.3 fL (35.1-46.3); Red Blood Cell Count 3.45 M/mm3 (4.30-5.90); White Blood Cell Count 13.22 K/mm3 (4.00-11.30)
[2021-12-25 03:34] LABS: Mean Corpuscular Volume 108 fL (80-100)
[2021-12-25 03:47] LABS: Albumin, Blood 2.9 g/dL (3.4-5.0); Anion Gap 8 mmol/L (6-16); Blood Urea Nitrogen 43 mg/dL (8-24); Bun/Creatinine Ratio 33.1 (12.0-20.0); CO2, Blood 29 mmol/L (21-32); Calcium, Blood 8.4 mg/dL (8.5-10.1); Chloride, Blood 104 mmol/L (98-108); Glomerular Filtration Rate 56 (60-); Glucose, Blood 154 mg/dL (70-99); Magnesium, Blood 2.2 mg/dL (1.6-2.4); Phosphorus, Blood 3.5 mg/dL (2.5-4.9); Potassium, Blood 4.4 mmol/L (3.5-5.5); Sodium, Blood 141 mmol/L (136-145)
--- NOTE | 2021-12-25 06:34 | NUR ---
SHIFT SUMMARY PT REMAINS ALERT AND ORIENTED. TOLERATING CPAP T/O NIGHT. PT HAD ONE MOMENT WHERE HIS O2 SATS SHOWED 70'S BUT QUICKLY CLIMBED BACK TO THE 90'S W/O INTERVENTION. PT EASILY AROUSABLE AND DENIED SOB AFTER. UP TO BEDSIDE COMMODE MULTIPLE TIMES, PT INCONTINENT OF URINE PRIOR TO ASKING FOR HELP TO RESTROOM. PT SLEPT FOR MOST OF THE NIGHT. NO COMPLAINTS OR CONCERNS FROM PT.
--- NOTE | 2021-12-25 09:37 | NUR ---
CARE ASSUMPTION THIS RN ASSUMED CARE FROM ADRIANA RN AT 0700. VSS. TELE AFLUTER 80S. PATIENT IS ALERT AND ORIENTED X4. PERRLA. NEURO IS INTACT. PATIENT REPROTS NO PAIN. PATIENT REPORTS NO SHORTNESS OF BREATH AND LUNG SOUNDS CLEAR UPPER BASES AND DIM LOWER BASED. PATIENT WEARS CPAP AT NIGHT. PATIENT HAS STRONG RADIAL AND PEDIS PULSES. REPORTS NO CHEST PAIN. +1 EDEMA IN LOWER EXTREMITIES. ABD HAS MILD DISTENTION PATIENT STATES NORMAL, NONTENDER AND ACTIVE. SEE SHIFT ASSESSMENT FOR FURTHER DETAILS. MD BURDEN IN THIS AM TO SEE PATIENT AND PLAN IS FOR PATIENT TO DISCHARGE TODAY. PATIENT IS A STAND BY ASSIST WITH A WALKER. PATIENT ABLE TO PERFORM OWN ADLS. PATIENT SITTING IN CHAIR WITH CALL LIGHT WITHIN REACH. WILL CONTINUE TO MONITOR AND PROVIDE CARE.
[2021-12-25] MEDS ORDERED: Amiodarone HCl400 MG PO (11:08)
[2021-12-25] MEDS ORDERED: PRED20 PO (11:11)
[2021-12-25] MEDS ORDERED: AZIT500 PO (11:11)
[2021-12-25] MEDS ORDERED: DOXY100 PO (11:12)
[2021-12-25] MEDS ORDERED: VISBIOME 112.51 EACH PO (11:12)
--- NOTE | 2021-12-25 12:05 | NUR ---
DISCHARGE INSTRUCTIONS/DISCHARGE FROM UNIT THIS RN WENT OVER DISCHARGE EDUCATION. THIS RN WENT OVER BOTH THE ANTIBIOTICS AND PROBIOTIC THE PATIENT WILL BE TAKING AND THAT THEY WERE FAXED OVER TO HIS [facility]. THIS RN EDUCATED THE PATIENTS FRIEND WHO PICKED HIM UP WELL. THIS RN WENT OVER TO FOLLOW UP WITH HIS PRIMARY CARE PROVIDER. PATIENT WAS IN NO DISTRESS WHEN LEAVING THE UNIT. ALL PATIENT BELONGINGS WITH THE PATIENT. THIS RN TOOK THE PATIENT OUT VIA WHEELCHAIR AT 1135.
== END 2021-12-25 11:27 | disposition home or self-care (01) | DRG 189 ==
LOC: ER 02:19 → PCU 02:20 → ER 02:20 → PCU 05:01
PROVIDERS: Emergency Medicine; Family Medicine; ADMIT Internal Medicine
DX: J96.02 Acute respiratory failure with hypercapnia (principal); A41.9 Sepsis, unspecified organism; I13.0 Hypertensive heart and chronic kidney disease with heart failure and stage 1 through stage 4 chronic kidney disease, or unspecified chronic kidney disease; K50.90 Crohn's disease, unspecified, without complications; I48.20 Chronic atrial fibrillation, unspecified; I50.30 Unspecified diastolic (congestive) heart failure; I48.92 Unspecified atrial flutter; N13.8 Other obstructive and reflux uropathy; J44.9 Chronic obstructive pulmonary disease, unspecified; J96.01 Acute respiratory failure with hypoxia; Z20.822 Contact with and (suspected) exposure to COVID-19; N18.9 Chronic kidney disease, unspecified; E11.22 Type 2 diabetes mellitus with diabetic chronic kidney disease; D69.6 Thrombocytopenia, unspecified; N40.1 Benign prostatic hyperplasia with lower urinary tract symptoms; I05.0 Rheumatic mitral stenosis; I49.3 Ventricular premature depolarization; Z88.8 Allergy status to other drugs, medicaments and biological substances; Z88.5 Allergy status to narcotic agent; Z79.84 Long term (current) use of oral hypoglycemic drugs; Z95.5 Presence of coronary angioplasty implant and graft; Z79.01 Long term (current) use of anticoagulants; Z95.2 Presence of prosthetic heart valve; Z95.1 Presence of aortocoronary bypass graft
CPT/HCPCS: 0241U; 36415; 71045; 80053; 80069; 82803; 82947; 83735; 83880; 84145; 84484; 85025; 93005; 93010; 93306; 94640; 94644; 94660; 94664; 94762; 96365; 96375; 99285-25; A9270; J0456; J0696; J1100; J2930; J7050; J7500; J7512

== ENCOUNTER 2022-05-19 12:52 | Inpatient (IN) | payer OTHER, MEDICARE, BC ==
[~2022-05-19] VITALS: Ht 185.4 cm; Wt 93.4 kg
[~2022-05-19 12:52] MED LIST changes: +AZIT500 PO; -Aldactone25 MG PO; +Amiodarone HCl400 MG PO; +COLE625 PO; +COLESEVELAM HC625 MG PO; +DOXY100 PO; +DRON400T; +FERSU300 PO; -FURO40 PO; +Flomax0.4 MG PO; +JARDIANCE10 MG PO; -METF500 PO; +TRULICITY0.75 MG/01 SQ; +VISBIOME 112.51 EACH PO
[2022-05-19 13:43] LABS: PCO2 Arterial 59.2 mmHg (35-45); PO2 Arterial 361 mmHg (80-100); pH Blood Arterial 7.31 (7.35-7.45)
[2022-05-19 13:54] LABS: BASOPHILS ABSOLUTE AUTO 0.03 K/mm3 (0.00-0.23); BASOPHILS PERCENT AUTO 0 % (0-2); EOSINOPHILS ABSOLUTE AUTO 0.59 K/mm3 (0.00-0.68); EOSINOPHILS PERCENT AUTO 6 % (0-6); Hematocrit 40.7 % (37.0-53.0); IMMATURE GRAN PERCENT AUTO 1 % (0-1); LYMPHOCYTES ABSOLUTE AUTO 1.15 K/mm3 (0.84-5.20); LYMPHOCYTES PERCENT AUTO 11 % (21-46); MONOCYTES ABSOLUTE AUTO 0.84 K/mm3 (0.16-1.47); MONOCYTES PERCENT AUTO 8 % (4-13); Mean Corpuscular HGB 34.5 pg (26.0-34.0); Mean Corpuscular HGB Conc 31.9 g/dL (31.5-36.5); Mean Corpuscular Volume 108 fL (80-100); Mean Platelet Volume 11.5 fL (9.1-12.4); NEUTROPHILS ABSOLUTE AUTO 7.63 K/mm3 (1.96-9.15); NEUTROPHILS PERCENT AUTO 74 % (41-73); Platelet Count 146 K/mm3 (150-400); RDW Coefficient Variation 13.8 % (11.7-14.2); RDW Standard Deviation 55.2 fL (35.1-46.3); Red Blood Cell Count 3.77 M/mm3 (4.30-5.90); White Blood Cell Count 10.34 K/mm3 (4.00-11.30)
[2022-05-19 14:10] LABS: Albumin, Blood 3.2 g/dL (3.4-5.0); Albumin/Globulin Ratio 0.8 (0.8-1.8); Bilirubin, Total 0.6 mg/dL (0.1-1.0); Calcium, Blood 9.1 mg/dL (8.5-10.1); Creatinine, Blood 1.26 mg/dL (0.60-1.20); Globulin, Blood 3.9 g/dL (2.2-4.0); Potassium, Blood 4.7 mmol/L (3.5-5.5); Total Protein, Blood 7.1 g/dL (6.4-8.2)
[2022-05-19 14:14] LABS: Magnesium, Blood 2.4 mg/dL (1.6-2.4)
[2022-05-19 14:21] LABS: Influenza A, PCR NEGATIVE (NEGATIVE); Influenza B, PCR NEGATIVE (NEGATIVE); Resp Syncytial Virus, PCR NEGATIVE (NEGATIVE); SARS-Cov-2 (COVID-19) PCR, MMC NEGATIVE (NEGATIVE)
[2022-05-19 15:00] LABS: PCO2 Venous 66.5 mmHg (38-42); pH Blood Venous 7.29 (7.34-7.37)
[2022-05-19 15:01] LABS: Base Excess Venous 5.2 mmol/L; Bicarbonate Venous 26.6 mmol/L (24.0-30.0)
[2022-05-19 16:24] LABS: Base Excess Venous 4.8 mmol/L; Bicarbonate Venous 26.6 mmol/L (24.0-30.0); PCO2 Venous 64.5 mmHg (38-42)
[2022-05-19] MEDS ORDERED: SPIRIVA RESPIMAT4 G3 INH (17:32)
[2022-05-19] MEDS ORDERED: GEMTESA75 MG PO (17:33)
[2022-05-19] MEDS ORDERED: DRON400T PO ×2 (17:33→17:56)
[2022-05-19] MEDS ORDERED: ROFL500T PO (17:34)
[2022-05-19] MEDS ORDERED: METF500 PO (17:38)
[2022-05-19] MEDS ORDERED: FINA5 PO (17:38)
[2022-05-19] MEDS ORDERED: JARDIANCE10 MG PO (17:39)
[2022-05-19] MEDS ORDERED: Aldactone25 MG PO (17:39)
[2022-05-19] MEDS ORDERED: OMEPRAZOLE MAGN20 M1 PO (17:39)
[2022-05-19] MEDS ORDERED: XARELTO PO (17:47)
[2022-05-19] MEDS ORDERED: ATOR40TA PO (17:51)
[2022-05-19] MEDS ORDERED: VICTOZA 2-0.6 MG/0.1 SC (17:52)
[2022-05-19] MEDS ORDERED: TAMS.4ER PO (17:53)
[2022-05-19] MEDS ORDERED: POTA10T PO (17:55)
[2022-05-19] MEDS ORDERED: LOSA25 PO (17:57)
[2022-05-19] MEDS ORDERED: LOPE2C PO (17:58)
[2022-05-19] MEDS ORDERED: FURO40 PO ×2 (17:59→18:11)
[2022-05-19] MEDS ORDERED: FLUT1DIS8 INH (18:00)
[2022-05-19] MEDS ORDERED: FERROUS SULFAT325 M3 PO (18:01)
[2022-05-19] MEDS ORDERED: CHOLP PO (18:02)
[2022-05-19] MEDS ORDERED: Carvedilol12.5 MG PO (18:02)
[2022-05-19] MEDS ORDERED: AZAT50 PO (18:03)
[2022-05-19] MEDS ORDERED: ALBU2.5V5 INH (18:06)
--- NOTE | 2022-05-19 18:45 | NUR ---
PATIENT ADMIT TO PCU AT 1715. ABLE TO STAND AND TRANSFER USING WALKER AN DONE PERSON ASSIST. DENIES NUMBNESS/TINGLING. PERRLA WEARING GLASSES. AT BEDSIDE. ON ROOM AIR SATING 97-100% ON ROOM AIR. DENIES SOB. STATES HIS BREATHING IS FEELING BETTER. LUNGS SOUNDING CLEAR AND DIM IN BASES. CPAP SET UP FOR BEDTIME. OCCASIONAL COUGH. TELE SHOWING AFIB WITH HR 90-110'S. BP STABLE. DENIES CHEST PAIN/PRESSURE. BLE MINIMAL EDEMA. TOLERATING PO DIET. DENIES ABDOMINAL PAIN/NAUSEA. ACHS BLOOD SUGARS. USING BSC TO VOID. ORIENTED TO ROOM AND UNIT. CALL LIGHT IN REACH. BED IN LOW LOCKED POSITION. ABLE TO ASSIST THIS RN WITH MED REC. MED REC COMPELTED. WILL CONTINUE TO MONITOR AND REPORT OFF TO ONCOMING RN.
[2022-05-20 04:39] LABS: BASOPHILS ABSOLUTE AUTO 0.01 K/mm3 (0.00-0.23); BASOPHILS PERCENT AUTO 0 % (0-2); EOSINOPHILS PERCENT AUTO 0 % (0-6); Hematocrit 37.7 % (37.0-53.0); Hemoglobin 12.5 g/dL (13.5-17.5); IMMATURE GRAN ABSOLUTE AUTO 0.06 K/mm3 (0.00-0.10); IMMATURE GRAN PERCENT AUTO 1 % (0-1); LYMPHOCYTES ABSOLUTE AUTO 0.51 K/mm3 (0.84-5.20); LYMPHOCYTES PERCENT AUTO 6 % (21-46); MONOCYTES ABSOLUTE AUTO 0.11 K/mm3 (0.16-1.47); MONOCYTES PERCENT AUTO 1 % (4-13); Mean Corpuscular HGB 34.7 pg (26.0-34.0); Mean Corpuscular HGB Conc 33.2 g/dL (31.5-36.5); Mean Corpuscular Volume 105 fL (80-100); Mean Platelet Volume 11.5 fL (9.1-12.4); NEUTROPHILS ABSOLUTE AUTO 8.12 K/mm3 (1.96-9.15); NEUTROPHILS PERCENT AUTO 92 % (41-73); Platelet Count 136 K/mm3 (150-400); RDW Coefficient Variation 13.5 % (11.7-14.2); RDW Standard Deviation 52.4 fL (35.1-46.3); White Blood Cell Count 8.81 K/mm3 (4.00-11.30)
[2022-05-20 05:29] LABS: Albumin/Globulin Ratio 0.8 (0.8-1.8); Bilirubin, Total 0.7 mg/dL (0.1-1.0); Bun/Creatinine Ratio 27.5 (12.0-20.0); Calcium, Blood 8.8 mg/dL (8.5-10.1); Creatinine, Blood 1.31 mg/dL (0.60-1.20); Globulin, Blood 3.7 g/dL (2.2-4.0); Potassium, Blood 4.5 mmol/L (3.5-5.5); Total Protein, Blood 6.7 g/dL (6.4-8.2)
--- NOTE | 2022-05-20 06:33 | NUR ---
END OF SHIFT SUMMARY NO ACUTE CHANGES OVERNIGHT. PT WORE CPAP AT HOME SETTINGS SATS REMAINED STABLE. USED BSC TO URINATE TAKES TWO STAFF TO ASSIST PT OUT OF BED AND ONTO COMMODE. PT ABLE TO GET LEGS INTO BED BY HIMSELF AND POSITION SELF ONCE BACK IN BED. HE NORMALLY SLEEPS IN A RECLINER AT HOME WITH A LIFT SO IT IS EASIER FOR HIM TO GET IN AND OUT OF. WILL GIVE REPORT TO ONCOMING RN. WILL CONTINUE TO MONITOR.
[2022-05-20] MEDS ORDERED: AZIT500 PO (11:30)
[2022-05-20] MEDS ORDERED: Prednisone10 MG PO (11:31)
--- NOTE | 2022-05-20 12:58 | NUR ---
DISCHARGE: PACKET PRINTED AND PT EDUCATED. IV DC'D WNL, TIP INTACT. MED REC FAXED TO [facility]. PT LEFT UNIT AT ABOUT 1145 VIA WHEELCHAIR WITH YOEL WELDON.
== END 2022-05-20 12:00 | disposition home or self-care (01) | DRG 189 ==
LOC: ER 12:52 → PCU 15:31
PROVIDERS: Student in an Organized Health Care Education/Training Program; ADMIT Internal Medicine
DX: J96.01 Acute respiratory failure with hypoxia (principal); I50.32 Chronic diastolic (congestive) heart failure; K50.90 Crohn's disease, unspecified, without complications; J44.1 Chronic obstructive pulmonary disease with (acute) exacerbation; E87.29 Other acidosis; J96.02 Acute respiratory failure with hypercapnia; E11.9 Type 2 diabetes mellitus without complications; I48.91 Unspecified atrial fibrillation; I11.0 Hypertensive heart disease with heart failure; N40.0 Benign prostatic hyperplasia without lower urinary tract symptoms; Z88.5 Allergy status to narcotic agent; Z88.8 Allergy status to other drugs, medicaments and biological substances; Z88.1 Allergy status to other antibiotic agents; Z79.899 Other long term (current) drug therapy; Z79.84 Long term (current) use of oral hypoglycemic drugs; Z95.1 Presence of aortocoronary bypass graft; Z20.822 Contact with and (suspected) exposure to COVID-19
CPT/HCPCS: 0241U; 36415; 36600; 71045; 71260; 80053; 82803; 82947; 83735; 83880; 84484; 85025; 93005; 93010; 94640; 94660; 94664; 94761; 94762; 96365-59; 96375-59; 99291-25; A9270; J0456; J1815; J2920; J2930; J7050; J7500; Q9967

== ENCOUNTER 2022-06-26 09:29 | Emergency (ER) | payer OTHER, MEDICARE, BC ==
[~2022-06-26] VITALS: Ht 185.4 cm; Wt 104.3 kg
[~2022-06-26 09:29] MED LIST changes: +Aldactone25 MG PO; +CHOLP PO; +Carvedilol12.5 MG PO; +FERROUS SULFAT325 M3 PO; +FLUT1DIS8 INH; +FURO40 PO; +GEMTESA75 MG PO; +LOSA25 PO; +METF500 PO; +OMEPRAZOLE MAGN20 M1 PO; +POTA10T PO; +Prednisone10 MG PO; +ROFL500T PO; +SPIRIVA RESPIMAT4 G3 INH; +TAMS.4ER PO; +VICTOZA 2-0.6 MG/0.1 SC; +XARELTO PO
== END 2022-06-26 11:02 | disposition home or self-care (01) ==
LOC: ER 09:29
DX: S09.90XA Unspecified injury of head, initial encounter (principal); W01.198A Fall on same level from slipping, tripping and stumbling with subsequent striking against other object, initial encounter; I10 Essential (primary) hypertension; E11.9 Type 2 diabetes mellitus without complications; I48.91 Unspecified atrial fibrillation; J44.9 Chronic obstructive pulmonary disease, unspecified; N40.0 Benign prostatic hyperplasia without lower urinary tract symptoms; Z88.5 Allergy status to narcotic agent; Z88.8 Allergy status to other drugs, medicaments and biological substances; Z79.899 Other long term (current) drug therapy; Z79.01 Long term (current) use of anticoagulants; Z79.84 Long term (current) use of oral hypoglycemic drugs
CPT/HCPCS: 70450; A9270

== ENCOUNTER 2022-09-13 14:20 | Emergency (ER) | payer MEDICARE, BC ==
[~2022-09-13] VITALS: Ht 185.4 cm; Wt 99.8 kg
[2022-09-13 15:00] LABS: BASOPHILS ABSOLUTE AUTO 0.04 K/mm3 (0.00-0.23); BASOPHILS PERCENT AUTO 0 % (0-2); EOSINOPHILS ABSOLUTE AUTO 0.37 K/mm3 (0.00-0.68); EOSINOPHILS PERCENT AUTO 4 % (0-6); Hematocrit 41.1 % (37.0-53.0); Hemoglobin 13.2 g/dL (13.5-17.5); IMMATURE GRAN ABSOLUTE AUTO 0.06 K/mm3 (0.00-0.10); IMMATURE GRAN PERCENT AUTO 1 % (0-1); LYMPHOCYTES ABSOLUTE AUTO 0.88 K/mm3 (0.84-5.20); LYMPHOCYTES PERCENT AUTO 9 % (21-46); MONOCYTES ABSOLUTE AUTO 0.75 K/mm3 (0.16-1.47); MONOCYTES PERCENT AUTO 8 % (4-13); Mean Corpuscular HGB 34.2 pg (26.0-34.0); Mean Corpuscular HGB Conc 32.1 g/dL (31.5-36.5); Mean Corpuscular Volume 107 fL (80-100); Mean Platelet Volume 11.9 fL (9.1-12.4); NEUTROPHILS ABSOLUTE AUTO 7.48 K/mm3 (1.96-9.15); NEUTROPHILS PERCENT AUTO 78 % (41-73); Platelet Count 149 K/mm3 (150-400); RDW Coefficient Variation 13.9 % (11.7-14.2); RDW Standard Deviation 54.3 fL (35.1-46.3); Red Blood Cell Count 3.86 M/mm3 (4.30-5.90); White Blood Cell Count 9.58 K/mm3 (4.00-11.30)
[2022-09-13 15:22] LABS: Albumin/Globulin Ratio 0.8 (0.8-1.8); Bilirubin, Total 0.5 mg/dL (0.1-1.0); Bun/Creatinine Ratio 26.1 (12.0-20.0); Calcium, Blood 8.6 mg/dL (8.5-10.1); Creatinine, Blood 1.38 mg/dL (0.60-1.20); Potassium, Blood 4.4 mmol/L (3.5-5.5)
== END 2022-09-13 17:22 | disposition home or self-care (01) ==
LOC: ER 14:20
PROVIDERS: Physician Assistant
DX: R06.02 Shortness of breath (principal); R60.0 Localized edema; J44.9 Chronic obstructive pulmonary disease, unspecified; I48.91 Unspecified atrial fibrillation; I12.9 Hypertensive chronic kidney disease with stage 1 through stage 4 chronic kidney disease, or unspecified chronic kidney disease; N18.9 Chronic kidney disease, unspecified; E11.22 Type 2 diabetes mellitus with diabetic chronic kidney disease; Z88.5 Allergy status to narcotic agent; Z88.8 Allergy status to other drugs, medicaments and biological substances; Z79.899 Other long term (current) drug therapy; Z79.84 Long term (current) use of oral hypoglycemic drugs; Z79.01 Long term (current) use of anticoagulants
CPT/HCPCS: 71046; 80053; 83880; 84484; 85025; J1940

== ENCOUNTER 2022-10-05 21:13 | Inpatient (IN) | payer OTHER ==
[~2022-10-05] VITALS: Ht 185.4 cm; Wt 86.9 kg
[2022-10-05 22:08] LABS: Base Excess Venous -2.2 mmol/L; Bicarbonate Venous 20.6 mmol/L (24.0-30.0); PO2 Venous 202 mmHg (38-42)
[2022-10-05 22:08] LABS: BASOPHILS ABSOLUTE AUTO 0.07 K/mm3 (0.00-0.23); BASOPHILS PERCENT AUTO 1 % (0-2); EOSINOPHILS ABSOLUTE AUTO 0.33 K/mm3 (0.00-0.68); EOSINOPHILS PERCENT AUTO 3 % (0-6); Hematocrit 41.1 % (37.0-53.0); Hemoglobin 13.4 g/dL (13.5-17.5); IMMATURE GRAN ABSOLUTE AUTO 0.13 K/mm3 (0.00-0.10); IMMATURE GRAN PERCENT AUTO 1 % (0-1); LYMPHOCYTES PERCENT AUTO 11 % (21-46); MONOCYTES ABSOLUTE AUTO 1.44 K/mm3 (0.16-1.47); MONOCYTES PERCENT AUTO 13 % (4-13); Mean Corpuscular HGB 34.4 pg (26.0-34.0); Mean Corpuscular HGB Conc 32.6 g/dL (31.5-36.5); Mean Corpuscular Volume 106 fL (80-100); Mean Platelet Volume 12.3 fL (9.1-12.4); NEUTROPHILS ABSOLUTE AUTO 8.07 K/mm3 (1.96-9.15); NEUTROPHILS PERCENT AUTO 72 % (41-73); Platelet Count 129 K/mm3 (150-400); RDW Coefficient Variation 14.4 % (11.7-14.2); RDW Standard Deviation 56.3 fL (35.1-46.3); Red Blood Cell Count 3.89 M/mm3 (4.30-5.90); White Blood Cell Count 11.24 K/mm3 (4.00-11.30)
[2022-10-05 22:12] LABS: pH Blood Venous 7.07 (7.34-7.37)
[2022-10-05 22:18] LABS: Albumin, Blood 3.3 g/dL (3.4-5.0); Albumin/Globulin Ratio 0.9 (0.8-1.8); Bilirubin, Total 0.6 mg/dL (0.1-1.0); Bun/Creatinine Ratio 35.1 (12.0-20.0); Calcium, Blood 8.8 mg/dL (8.5-10.1); Creatinine, Blood 1.34 mg/dL (0.60-1.20); Globulin, Blood 3.8 g/dL (2.2-4.0); Magnesium, Blood 2.3 mg/dL (1.6-2.4); Potassium, Blood 5.1 mmol/L (3.5-5.5); Total Protein, Blood 7.1 g/dL (6.4-8.2)
[2022-10-05] MEDS ORDERED: GEMTESA75 MG PO (22:56)
[2022-10-05] MEDS ORDERED: ELIQUIS2.5 MG PO (22:57)
[2022-10-05] MEDS ORDERED: ROFL500T (22:58)
[2022-10-05] MEDS ORDERED: OMEP20ER PO (23:00)
[2022-10-05 23:11] LABS: Influenza A, PCR NEGATIVE (NEGATIVE); Influenza B, PCR NEGATIVE (NEGATIVE); Resp Syncytial Virus, PCR NEGATIVE (NEGATIVE); SARS-Cov-2 (COVID-19) PCR, MMC NEGATIVE (NEGATIVE)
[2022-10-06 00:44] LABS: Source, Urine Foley catheter
[2022-10-06 02:03] LABS: Bilirubin, Urine Neg (Neg); Blood, Urine 5+ (Neg); Glucose Qualitative, Urine 3+ (Neg); Ketones, Urine 2+ (Neg); Leukocyte Esterase, Urine Neg (Neg); Nitrite, Urine Neg (Neg); Protein, Urine 4+ (Neg); Urobilinogen, Urine NORM (Normal); pH, Urine 6.5 (5.0-8.0)
[2022-10-06 02:42] LABS: Appearance, Urine Bloody (Clear); Color, Urine Red (P-Yellow)
[2022-10-06 02:45] LABS: Bacteria Mod /hpf; Red Blood Cells, Urine TNTC /hpf (0-2); Squamous Epithelial Cells Not Seen /hpf (Few)
[2022-10-06 03:16] LABS: BASOPHILS ABSOLUTE AUTO 0.04 K/mm3 (0.00-0.23); BASOPHILS PERCENT AUTO 0 % (0-2); EOSINOPHILS ABSOLUTE AUTO 0.01 K/mm3 (0.00-0.68); EOSINOPHILS PERCENT AUTO 0 % (0-6); Hematocrit 39.1 % (37.0-53.0); IMMATURE GRAN PERCENT AUTO 1 % (0-1); LYMPHOCYTES ABSOLUTE AUTO 0.43 K/mm3 (0.84-5.20); LYMPHOCYTES PERCENT AUTO 4 % (21-46); MONOCYTES ABSOLUTE AUTO 0.28 K/mm3 (0.16-1.47); MONOCYTES PERCENT AUTO 3 % (4-13); Mean Corpuscular HGB 34.5 pg (26.0-34.0); Mean Corpuscular HGB Conc 33.2 g/dL (31.5-36.5); Mean Corpuscular Volume 104 fL (80-100); Mean Platelet Volume 12.1 fL (9.1-12.4); NEUTROPHILS ABSOLUTE AUTO 10.43 K/mm3 (1.96-9.15); NEUTROPHILS PERCENT AUTO 92 % (41-73); Platelet Count 110 K/mm3 (150-400); RDW Coefficient Variation 14.2 % (11.7-14.2); RDW Standard Deviation 54.1 fL (35.1-46.3); Red Blood Cell Count 3.77 M/mm3 (4.30-5.90); White Blood Cell Count 11.29 K/mm3 (4.00-11.30)
[2022-10-06 03:17] LABS: Bicarbonate Venous 23.3 mmol/L (24.0-30.0); PCO2 Venous 41.5 mmHg (38-42); pH Blood Venous 7.37 (7.34-7.37)
[2022-10-06 03:33] LABS: Albumin/Globulin Ratio 0.8 (0.8-1.8); Bilirubin, Total 0.8 mg/dL (0.1-1.0); Bun/Creatinine Ratio 34.9 (12.0-20.0); Calcium, Blood 8.7 mg/dL (8.5-10.1); Creatinine, Blood 1.29 mg/dL (0.60-1.20); Globulin, Blood 3.7 g/dL (2.2-4.0); Potassium, Blood 4.8 mmol/L (3.5-5.5); Total Protein, Blood 6.7 g/dL (6.4-8.2)
--- NOTE | 2022-10-06 06:53 | NUR ---
SHIFT SUMMARY PATIENT REMAINED INTUBATED AND SEDATED T/O SHIFT. PROPOFOL REMAINS AT 15 MCG/KG/MIN. PATIENT IS ALERT, FOLLOWING COMMANDS, CALM AND COOPERATIVE, TOLERATING VENT WELL. SWITCHED TO SPONTANEOUS THIS AM. SEE RT NOTES FOR SETTINGS. TEMP CHRISTIANSON DRAINED 350ML RED URINE TO GRAVITY WITH LARGE CLOTS. CHRISTIANSON IRRIGATED WITH 110ML STERILE WATER. TWO BM THIS SHIFT WITH STOOL INCONTINENCE. ATTENDS IN PLACE. VBG IMPROVED. REMAINED IN AFIB WITH RATE 90'S-130'S. NO OTHER CHANGES DURING SHIFT.
--- NOTE | 2022-10-06 08:54 | NUR ---
Assumed care for pt at 0700. Pt admitted overnight from ED, intubated in ED w/ 8.0 ETT, current vent settings Pressure Support at 15/450/8/40%; placed on Pressure Support around 0545 this morning, lungs sound coarse w/ wheezing and small amt of pink/frothy sputum. HR currently in A-Fib w/ intermittent A-Flutter. CBG q6hr w/ Humalog sliding scale. Lockwood cath in place and last BM 10/06/22, earlier this morning. Pt is following commands, though he is currently in restraints as he has pulled the circuit from the ETT and grabbed multiple times at his face for his ETT. at bedside. Propofol gtt @ 20 mcg/kg/min.
--- NOTE | 2022-10-06 09:35 | NUR ---
Propofol gtt stopped for sedation vacation per Dr. Saravia.
--- NOTE | 2022-10-06 10:47 | NUR ---
Pt extubated at 1046 and placed on 2 lpm o2 via NC.
--- NOTE | 2022-10-06 14:46 | NUR ---
Pt became SOB after working w/ PT. Desat to low 80s on 2 lpm o2 via NC, on 6 lpm o2 o2 sat only 89%. Placed on BiPap, current settings 16/8 and 30%.
--- NOTE | 2022-10-06 16:15 | NUR ---
Pt mejia has become increasing dark red and w/ clots. RN flushed mejia catheter w/ 750 ml of sterile water. Removed quite a few blood clots. But everytime the RN ceased flushing the catheter there was no more urine output. RN spoke w/ Dr. Ritcihe who advised to bladder scan the pt, which resulted in finding 947 of urine in his bladder.
--- NOTE | 2022-10-06 17:00 | NUR ---
This RN and Anne RN were unable to place a 24 [place] [address] catheter. After multiple attempts the decision was made to stop to decrease the trauma. Notified Dr. Ritchie.
--- NOTE | 2022-10-06 17:03 | NUR ---
Pt. is awake in bed and welcomes my visit. Pt. is pleasant, and only unsettled because of the discomfort of urination. Listen with empathy and a calming presence. Pt. displays evidence of being aware and engaged, but his jair is not an active part of his life. Pt. verbalized gratitude for the spiritual care visit, and welcomed this orchestrator to return.
--- NOTE | 2022-10-06 19:15 | NUR ---
ASSUMED CARE PATIENT LYING IN BED WITH BIPAP IN PLACE. FAMILY AT BEDSIDE. NO MEDICATIONS INF. PATIENT TRACKS TO SOUND AND GREETS STAFF UPON ENTERING ROOM. NO CHRISTIANSON PRESENT, ATTENDS IN PLACE. NO MEDICATIONS INF AT THIS TIME. REPORT RECEIVED FROM KVNG NAVARRO.
--- NOTE | 2022-10-06 21:10 | NUR ---
INTUBATION UPON ENTERING ROOM TO ASSESS PATIENT AND DELIVER NIGHT TIME MEDICATIONS, PATIENT FOUND TO BE UNRESPONSIVE WITH SHALLOW RESPIRATIONS, HYPOTENSION AND LARGE AMOUNTS OF ORAL SECRETIONS. HOSPITALIST, RT, AND CHARGE NURSE CALLED TO BEDSIDE. PATIENT URGENTLY INTUBATED FOR AIRWAY PROTECTION AND 1L NS BOLUS ADMINISTERED PER DR. RIZO. LEVOPHED STARTED @ 5MCG/MIN. 2116-ETOMIDATE 20MG IV, FOLLOWED BY ROCURONIUM 50MG IV 2117- 8.0 ETT PLACED 27CM AT TEETH W/ EQUAL BREATH SOUNDS AND GOOD CAPNOGRAPHY COLOR CHANGE. 2119- OGT PLACED W/ GOOD AUSCULTATION AND RETURN OF GASTRIC CONTENTS. ETT AND OGT PLACEMENT CONFIRMED USING XR AND VERIFIED WITH DR. RIZO.
--- NOTE | 2022-10-06 21:50 | NUR ---
3 WAY 26FR CHRISTIANSON PLACED. UNABLE TO OBTAIN A UA DUE TO IMMEDIATE INITATION OF CONTINUOUS BLADDER IRRIGATION.
--- NOTE | 2022-10-07 00:30 | NUR ---
ASSUMED CARE ASSUMED CARE OF PATIENT AT THIS TIME. INTUBATED- AC/VC 16/550/5/100%. FIO2 DECREASED TO 90% AT THIS TIME. PROPOFOL INFUSING AT 20MCG/KG/MIN. MINIMAL SPONTANEOUS MOVEMENT NOTED AT THIS TIME. WITHDRAWS EXTREMITIES TO NOXIOUS STIMULI. NOT FOLLOWING COMMANDS. OG TO LIS- NO DRAINAGE AT THIS TIME. CONTINUOUS BLADDER IRRIGATION ONGOING- DRAINING BRIGHT RED URINE AT THIS TIME. LEVOPHED INFUSING AT 5MCG/MIN AT THIS TIME TO MAINTAIN MAP >65.
[2022-10-07 03:47] LABS: BASOPHILS ABSOLUTE AUTO 0.07 K/mm3 (0.00-0.23); BASOPHILS PERCENT AUTO 0 % (0-2); EOSINOPHILS ABSOLUTE AUTO 0.01 K/mm3 (0.00-0.68); EOSINOPHILS PERCENT AUTO 0 % (0-6); Hemoglobin 11.7 g/dL (13.5-17.5); IMMATURE GRAN ABSOLUTE AUTO 0.34 K/mm3 (0.00-0.10); IMMATURE GRAN PERCENT AUTO 1 % (0-1); LYMPHOCYTES ABSOLUTE AUTO 1.98 K/mm3 (0.84-5.20); LYMPHOCYTES PERCENT AUTO 7 % (21-46); MONOCYTES ABSOLUTE AUTO 3.47 K/mm3 (0.16-1.47); MONOCYTES PERCENT AUTO 12 % (4-13); Mean Corpuscular HGB 34.6 pg (26.0-34.0); Mean Corpuscular HGB Conc 33.4 g/dL (31.5-36.5); Mean Corpuscular Volume 104 fL (80-100); Mean Platelet Volume 12.3 fL (9.1-12.4); NEUTROPHILS ABSOLUTE AUTO 23.02 K/mm3 (1.96-9.15); NEUTROPHILS PERCENT AUTO 80 % (41-73); NRBC ABSOLUTE 0.05 K/mm3 (0.00-0.02); NRBC Auto 0.2 /100 WBC (0.0-0.2); Platelet Count 134 K/mm3 (150-400); RDW Coefficient Variation 14.5 % (11.7-14.2); RDW Standard Deviation 54.4 fL (35.1-46.3); Red Blood Cell Count 3.38 M/mm3 (4.30-5.90); White Blood Cell Count 28.89 K/mm3 (4.00-11.30)
[2022-10-07 06:26] LABS: Albumin, Blood 2.9 g/dL (3.4-5.0); Albumin/Globulin Ratio 0.8 (0.8-1.8); Bilirubin, Total 0.6 mg/dL (0.1-1.0); Bun/Creatinine Ratio 23.6 (12.0-20.0); Calcium, Blood 8.6 mg/dL (8.5-10.1); Creatinine, Blood 2.8 mg/dL (0.60-1.20); Globulin, Blood 3.5 g/dL (2.2-4.0); Potassium, Blood 5.4 mmol/L (3.5-5.5); Total Protein, Blood 6.4 g/dL (6.4-8.2)
--- NOTE | 2022-10-07 06:32 | NUR ---
SHIFT SUMMARY NO ACUTE CHANGES SINCE THIS RN ASSUMED CARE AT 0030. CONTINUOUS BLADDER IRRIGATION ONGOING- URINE IS LIGHT RED IN COLOR AND NO CLOTS NOTED. BLEEDING NOTED AT MEATUS, WELL. VENT SETTINGS AC/VC 15/550/5/55%. SEDATED WITH PROPOFOL NOW AT 30MCG/KG/MIN. PT OPENS EYES, FOLLOWS SIMPLE COMMANDS, AND NODS HEAD YES/NO APPROPRIATELY. REACHED FOR ETT THIS AM, BUT STOPPED REACHING ONCE DIRECTED. DENIES C/O PAIN. MONITOR SHOWS AFIB, RATE 90S-120s. LEVOPHED AT 2MCG/MIN NOW TO MAINTAIN MAP >65. AFEBRILE. OG TO LIS- NO DRAINAGE NOTED. WILL REPORT TO ONCOMING RN WHEN AVAILABLE.
--- NOTE | 2022-10-07 10:26 | NUR ---
Assumed care for pt at 0700. He was reintubated last night w/ 8.0 ETT @ 27 cm at teeth, vent settings 16/550/8/50%. Propofol gtt @ 30 mcg/kg/min and Levophed gtt @ 2 mcg/min. Overnight staff was able to place a large [address] way mejia after intubation w/ 26 [place]ian mejia cath, CBI actively in progress, urine is a very light pink. OG tube in place. at bedside.
--- NOTE | 2022-10-07 10:29 | NUR ---
Pt's consented to PICC line placement, Anne CALDERON placed the PICC in L upper arm, waiting for confirmation of palcement via Chest x-Ray.
--- NOTE | 2022-10-07 10:47 | NUR ---
Chest X-Ray completed. Dr. Saravia viewed the parson and advised he was ok w/ using it to infuse medications. Levophed and Propofol gtt moved to PICC in left upper arm.
--- NOTE | 2022-10-07 15:52 | NUR ---
Manually irrigated mejia after output decreased, used 1000 ml sterile water, removed quite a few clots. Then bathed pt and gave him a CHG bath, changed his gown and repositioned him.
--- NOTE | 2022-10-07 16:47 | NUR ---
Tube feed started. Pivot 1.5 started at 25 ml/hr, w/ a goal rate 35 ml/hr; 30 ml water flush q4hr.
[2022-10-07 17:18] LABS: Bun/Creatinine Ratio 22.5 (12.0-20.0); Calcium, Blood 7.8 mg/dL (8.5-10.1); Creatinine, Blood 3.29 mg/dL (0.60-1.20); Potassium, Blood 6.1 mmol/L (3.5-5.5)
--- NOTE | 2022-10-07 18:10 | NUR ---
Pt remains intubated w/ 8.0 ETT that is 27 cm at the upper teeth, vent settings 16/550/5/30%. Propofol gtt 30 mcg/kg/min, Levophed @ 6 mcg/min w/ a 1 L LR bolus currently infusing. Pivot 1.5 tube feed was started this afternoon at 25 ml/hr w/ a goal of 35 ml/hr and 30 ml q4hr water flushes. CBI continues w/ 850 ml urine output, pt required x2 manual irrigation to clear clots. Performed a bladder scan around 1730 and captured 226 ml in his bladder, though CBI was actively infusing. PICC line placed in L upp arm, pt received CHG bath this afternoon w/ fresh gown, shampoo and sheets.
--- NOTE | 2022-10-08 02:13 | NUR ---
ASSUMED CARE ASSUMED CARE AT 1900. PT INTUBATED AND SEDATED. AC/VC 16/550/5/30% RR 16-20. ON PROPOFOL, AND LEVOPHED GTTS. SEE FLOWSHEET FOR TITRATIONS. VSS. AFIB RATE 90'S. NO SBT TRIAL THIS AM PER RT. SEE RT NOTE. SEDATION VACATION DONE APPROX 2330. PT ABLE TO OPEN EYES AND FOLLOW COMMANDS. MOVES ALL EXTREMITIES. [address] CHRISTIANSON W/ CBI IN PLACE. CHRISTIANSON FLUSHED AND COPIOUS AMOUNTS OF CLOTS OUT. FAMILY IN ROOM AT CHANGE OF SHIFT AND GIVEN UPDATE ON PLAN T/O NIGHT.
--- NOTE | 2022-10-08 03:35 | NUR ---
CHRISTIANSON THIS RN ATTEMPTED TO FLUSH CHRISTIANSON APPROX 0000. INITIALLY ABLE TO FLUSH AND GET RETURN OF CLOTS. ON THIRD ATTEMPT CHRISTIANSON WOULD FLUSH BUT CHRISTIANSON TUBE COLLAPSED WITHIN AND UNABLE TO GET RETURN OF URINE. PT BLADDER SCANNED W/ RESULT OF 439. THIS RN CONTINUED TO FLUSH APPROX 1L W/O RETURN OF URINE IN [place]YRINGE. CHRISTIANSON CONTINUES TO DRAIN. BLADDER SCAN DONE APPROX 0230 W/ RESULT OF 224.
[2022-10-08 03:48] LABS: Hematocrit 27.8 % (37.0-53.0); Hemoglobin 9.5 g/dL (13.5-17.5); Mean Corpuscular HGB 34.5 pg (26.0-34.0); Mean Corpuscular HGB Conc 34.2 g/dL (31.5-36.5); Mean Corpuscular Volume 101 fL (80-100); Mean Platelet Volume 12.4 fL (9.1-12.4); NRBC Auto 0.6 /100 WBC (0.0-0.2); Platelet Count 142 K/mm3 (150-400); RDW Coefficient Variation 14.9 % (11.7-14.2); RDW Standard Deviation 53.8 fL (35.1-46.3); Red Blood Cell Count 2.75 M/mm3 (4.30-5.90); White Blood Cell Count 17.19 K/mm3 (4.00-11.30)
[2022-10-08 03:59] LABS: Bun/Creatinine Ratio 23.7 (12.0-20.0); Creatinine, Blood 3.55 mg/dL (0.60-1.20); Magnesium, Blood 2.5 mg/dL (1.6-2.4); Phosphorus, Blood 6.9 mg/dL (2.5-4.9); Potassium, Blood 5.1 mmol/L (3.5-5.5)
--- NOTE | 2022-10-08 05:57 | NUR ---
SHIFT SUMMARY NO ACUTE EVENTS T/O NIGHT. PT REMAINS INTUBATED AND SEDATED. NO VENT SETTING CHANGES. ON PROPOFOL AND LEVOPHED GTTS. SEE FLOWSHEET FOR TITRATIONS. NOT IN RESTRAINTS. VSS. AFIB RATE 80-90'S. SBP 90-100'S. [address] W/ CBI. CALL TO HOSP REGARDING MORNING LABS AND 0600 CBG. NO ORDERS RECEIVED.
--- NOTE | 2022-10-08 08:00 | NUR ---
ASSUMED CARE PT. GRIMACES TO VERBAL STIMULI, CURRENTLY ON PROPOFOL FOR SEDATION AT 30MCG/KG/MIN. PT CONTINUES ON VENT WITH SETTINGS OF AC 16, TV 550, PEEP 5, 30%FIO2. CABALLERO SECREATIONS SUCTIONED FROM ETT. PT. AFEBRILE. CONTINUES ON LEVOPHED GTT, TITRATED DOWN TO 4MCG THIS AM. PT. ABD SOFT, CONTINUES WITH CONT. BLADDER IRRIGATION. STRICT I&O OF RED OUTPUT. TF INFUSING AT GOAL WITH PIVOT. VSS THIS AM. AT BEDSIDE, UPDATED ON CONDITION.
--- NOTE | 2022-10-08 09:00 | NUR ---
DR. DALTON CONSULTED, SPOKE WITH PHYSICIAN. NO NEW ORDERS AT THIS TIME.
--- NOTE | 2022-10-08 10:30 | NUR ---
ASSUME CARE: I have assumed care of this patient.
--- NOTE | 2022-10-08 17:33 | NUR ---
SHIFT SUMMARY: Pt sedated but responsive; MAXWELL. Continuous bladder irrigation still in place with 4600 mls out. Provider was notified and 2L of LR given. CBGs were high today; pt started on glargine and changed to medium sliding scale. Several family members at bedside throughout the day. Discussed plan of care with pt's at bedside.
--- NOTE | 2022-10-08 19:44 | NUR ---
ASSUMED CARE ASSUMED CARE AT 1900. PT INTUBATED AND SEDATED. AC/VC 16/550/5/30% RR 16-18. PROPOFOL AND LEVOPHED GTTS INFUSING. SEE FLOWSHEET FOR TITRATIONS. VSS. AFIB RATE 70-80'S. PT GRIMACES W/ ORAL CARE AND TURNS. MOVES ALL EXTREMITIES. [address] W/ CBI. URINE DARK RED. PLAN FOR SBT IN AM. FAMILY AT BEDSIDE AND GIVEN UPDATE ON PLAN T/O NIGHT.
[2022-10-09 03:55] LABS: Hematocrit 26.6 % (37.0-53.0); Hemoglobin 9.3 g/dL (13.5-17.5); Mean Corpuscular HGB 35.1 pg (26.0-34.0); Mean Corpuscular Volume 100 fL (80-100); Mean Platelet Volume 12.3 fL (9.1-12.4); NRBC Auto 0.6 /100 WBC (0.0-0.2); Platelet Count 131 K/mm3 (150-400); RDW Coefficient Variation 14.7 % (11.7-14.2); RDW Standard Deviation 53.3 fL (35.1-46.3); Red Blood Cell Count 2.65 M/mm3 (4.30-5.90); White Blood Cell Count 16.21 K/mm3 (4.00-11.30)
[2022-10-09 04:12] LABS: Bun/Creatinine Ratio 30.6 (12.0-20.0); Calcium, Blood 7.7 mg/dL (8.5-10.1); Creatinine, Blood 3.43 mg/dL (0.60-1.20); Potassium, Blood 4.6 mmol/L (3.5-5.5)
--- NOTE | 2022-10-09 06:00 | NUR ---
SHIFT SUMMARY APPROX 1999, CHRISTIANSON NOTED TO NOT BE DRAINING. PT BLADDER SEVERELY DISTENDED AND URINE LEAKING AROUND CATHETER W/ BED SOAKED. CBI IMMEDIATELY STOPPED AND PT BLADDER SCANNED W/ RESULT OF GREATER THAN 999. THIS RN ATTEMPTED TO MANUALLY FLUSH CHRISTIANSON. MODERATE AMOUNT OF CLOTS REMOVED INITIALLY. THEN THIS RN UNABLE TO PULL BACK. CHARGE NURSE AND OTHER NURSES ATTEMPTED WELL. DR ALBRECHT CALLED AND RECOMMENDED TO REMOVE CHRISTIANSON AND PLACE NEW ONE WELL GIVE FENTANYL PRIOR. NO 26FR [address] CHRISTIANSON AVAILABLE FROM [facility]. 24F CHRISITANSON PLACED W/ DARK RED/PURPLE OUTPUT. COPIOUS AMOUNTS OF CLOTS PULLED FROM CHRISTIANSON. CHRISTIANSON THEN BECAME CLOGGED AGAIN AND DR ALBRECHT CALLED. TRENA RECOMMENDED TO NOTIFY HOSP. HOSP NOTIFIED BY THIS RN. DR ALBRECHT INTO ROOM AND SCANNED PT WITH SONOSITE, 30F CHRISTIANSON ATTEMPTED TO DRAIN CLOTS. UNABLE TO PLACE. 24F CHRISTIANSON ATTEMPTED AGAIN AND WAS PLACED W/ SUCCESS. COPIOUS AMOUNTS OF CLOTS REMOVED VIA IRRIGATION PORT. CHRISTIANSON STARTED TO DRAIN AND CBI REINITIATED WIDE OPEN. OUTPUT BECAME CLEAR AND THIS RN ATTEMPTED TO SLOW IRRIGATION TO 75%. CHRISTIANSON CLOTTED OFF, CHRISTIANSON LEAKED AND MANUAL IRRIGATION NEEDED TO HELP CHRISTIANSON DRAIN. CBI REMAINED WIDE OPEN T/O REST OF NIGHT. MANUAL IRRIGATION DONE Q1-2. UNABLE TO GET ACCURATE I/O D/T AMOUNT LEAKED. AMOUNT IRRIGATED 27L. AMOUNT REMOVED 25,050 MLS. PT REMAINED INTUBATED AND SEDATED. NO VENT SETTING CHANGES. LEVO INCREASED T/O NIGHT. SEE FLOWSHEET. VSS. AFIB RATE 70-80'S. NO BM THIS SHIFT. PROPOFOL GTT INFUSING. R PUPIL IRREGULAR. HOSP NOTIFED. NO ORDERS AT THIS TIME.
--- NOTE | 2022-10-09 07:39 | NUR ---
ASSUMED CARE PT. REMAINS SEDATED AND INTUBATED. PROPOFOL GTT INFUSING AT 30MCG/KG/MIN. GRIMACES WITH MOVEMENT. PT. LS CLEAR AT THIS TIME, VENT SETTINGS AC 16, 550TV, PEEP 5, 30%FIO2. PT. CONTINUES ON TF AT 35ML/HR WITH Q4H FLUSH WITH H2O. PICC LINE TO LEFT UPPER ARM INFUSING LEVOPHED GTT FOR BP SUPPORT. CURRENTLY TITRATED DOWN TO 7MCG/MIN. PT. HAS [address], BLOOD NOTED AROUND MEATUS. PT. HAS HIGH FLOW CONTINUOUS BLADDER IRRIGATION IN PLACE. CLEAR/ RED TINGED OUTPUT WITH MANUAL FLUSHING WITH STERILE WATER Q1HR WITH OCCASIONAL CLOT REMOVAL. PT. ABD SOFT AT THIS TIME. NADN. RESTRAINTS REMAIN OFF.
--- NOTE | 2022-10-09 10:48 | NUR ---
FAMILY MEETING WITH DR. ALBRECHT PT. CHANGED TO SPONT PS 10, PEEP 5, 30% FIO2. PT REMAINING CALM, FAMILY AT BEDSIDE. TV 450S, RR 20. PT. MEDICATED FOR PAIN AFTER SHAKING HEAD YES TO PAIN. PT. CONTINUES WITH BLADDER IRRIGATION. PLANS FOR EXTUBATION. RT NOTIFIED. BIPAP TO BE AT BEDSIDE. PT. TO NOT BE REINTUBATED PER FAMILY AND PT WISHES.
--- NOTE | 2022-10-09 11:23 | NUR ---
PT EXTUBATED AT 1110 TO 3LNC FAMILY REMAINS AT BEDSIDE. PT. FAMILY AT BEDSIDE. PT. HAS BIPAP AT BEDSIDE IF NEEDED. DR. DALTON TO ROOM VIA VIDEO CONSULT. NO NEW ORDERS AT THIS TIME. VSS.
[2022-10-09 12:21] LABS: Glucose, Blood 549 mg/dL (70-99)
--- NOTE | 2022-10-09 14:57 | NUR ---
ELEVATED BLOOD GLUCOSE DISCUSSED WITH DR. ALBRECHT. CBG CHECK OF 549. PER DR. ALBRECHT GIVE 20U SC HUMALOG NOW THEN RECHECK IN 1 HR. AFTER 1 HR BG DECREASED TO 450. TF DCD WITH EXTUBATION AND STERIOD DOSE REDUCED.
--- NOTE | 2022-10-09 15:10 | NUR ---
BIPAP ORAL CARE DONE, SMALL ICE CHIP PROVIDED. PT. HAS VERY WEAK COUGH. SHAKING HEAD YES AND NOW TO QUESTIONS, VOICE STILL VERY WEAK. PT. RR INCREASING WITH SHALLOW BREATHING. PT. REMAINS ON 2LNC SPO2 99%.PT SHAKES HEAD YES TO FEELING SOB, PT SET UP WITH BIPAP, CURRENTLY 10/5, 35%. NOSE GEL PLACED FOR SKIN PROTECTION. PT. SHAKES HEAD YES THAT THE SUPPORT IS DECREASING SOB. PT SHAKES HEAD YES TO PAIN, AND NEEDING PAIN MEDICATION. MED WITH FENTANYL PER DR. OLEARY. ABD PALPATED PT GRIMACES WITH PALPATION,HOWEVER SOFT. BLADDER IRRIGATION CONTINUES.
--- NOTE | 2022-10-09 18:14 | NUR ---
SHIFT SUMMARY PT. EXTUBATED THIS SHIFT. PLACED ON BIPAP WHEN RESTING WITH SETTINGS OF 10/5, 30%. FREQUENT ORAL CARE FOR DRY MOUTH. PT. HAS VERY WEAK COUGH AND VOICE IS VERY WEAK. SWABS AT THIS TIME WITH SUCTION, UNTIL STRONGER. PT. REMAINS NPO. PT. CONTINUES ON LEVOPHED 5MCG/MIN FOR BP SUPPORT. MED WITH FENTANYL T/O SHIFT FOR PAIN TO ABD. PT. CONTINUES TO HAVE SOME CLOTS AROUND THE CATHETER AT INSERTION SITE. CONT BLADDER IRRG. T/O DAY WITH 42,000ML IN AND 44,500 OUT CLEAR FLUID. ABD REMAINS SOFT, HOWEVER TENDER WITH PALPATION. PT. VSS AT THIS TIME. REPORT TO ONCOMING RN .
--- NOTE | 2022-10-09 19:57 | NUR ---
ASSUMED CARE ASSUMED CARE AT 1900. PT ALERT AND FOLLOWING COMMANDS. ABLE TO SQUEEZE HANDS AND MOVE BLE. VERY WEAK. PT VOICE VERY SOFT AND HOARSE W/ ONE WORD ANSWERS. PT NODS HEAD YES/NO TO QUESTIONS. ON BIPAP 05/11 30%. RR 18-28. SPO2 GREATER THAN 90%. PT BREATHING VERY SHALLOW AND DIMINISHED BREATH SOUNDS ON RML/RLL/LLL. CLEAR IN UPPER LOBES. PT HAS WEAK COUGH, NEEDS ENCOURAGEMENT AFTER ORAL CARE TO CLEAR THROAT. LIP BALM APPLIED. AFIB RATE 80-90'S. VSS. LEVOPHED GTT INFUSING. SEE FLOWSHEET FOR TITRATIONS. PT C/O PAIN IN ABD, 02/13. GRIMACES W/ PALPATION. ABD SOFT. MEDICATED PER EMAR. [address] W/ CBI WO. MANUAL IRRIGATION AND ASPIRATION DONE. NO CLOTS NOTED. OUTPUT LIGHT PINK.
--- NOTE | 2022-10-09 20:26 | NUR ---
CALL TO HOSP PT NPO AT THIS TIME. UNABLE TO GIVE PO MULTAQ. HOSP NOTIFIED AND NO NEW ORDERS UNTIL HR ABOVE 120.
--- NOTE | 2022-10-09 23:20 | NUR ---
CBI DR ALBRECHT NOTIFIED THAT THERE ARE NO MORE IRRIGATION BAGS IN THE HOSPITAL AND THAT PHARMACY IS TRYING TO SEE IF THEY ARE ABLE TO MAKE MORE. ORDER RECEIVED TO SLOW THE RATE DOWN IF NEEDED.
--- NOTE | 2022-10-10 01:44 | NUR ---
UPDATE WAITING FOR CALL BACK FROM PHARMACY REGARDING STERILE WATER BAGS. RATE SLOWED TO 75%. DEE IRRIGATION AND ASPIRATION DONE Q1. SCANT CLOTS ASPIRATED ONCE. COLOR VERY LIGHT PINK/CLEAR. ABD SOFT AND TENDER. PT C/O PAIN AND MEDICATED PER EMAR.
[2022-10-10 03:30] LABS: Hematocrit 29.1 % (37.0-53.0); Hemoglobin 9.9 g/dL (13.5-17.5); Mean Corpuscular Volume 103 fL (80-100); Mean Platelet Volume 11.8 fL (9.1-12.4); NRBC Auto 0.7 /100 WBC (0.0-0.2); Platelet Count 145 K/mm3 (150-400); RDW Coefficient Variation 14.8 % (11.7-14.2); RDW Standard Deviation 55.4 fL (35.1-46.3); Red Blood Cell Count 2.83 M/mm3 (4.30-5.90); White Blood Cell Count 15.24 K/mm3 (4.00-11.30)
--- NOTE | 2022-10-10 03:43 | NUR ---
DESATURATION PT SWITCHED TO 2L NC APPROX 0130. TOLERATED WELL W/ SPO2 GREATER THAN 90%. APPROX 0320 PT LAYED FLAT TO BOOST, CHANGE SHEETS, AND TURN. PT DESATURATED TO LOW 50 W/ GOOD WAVEFORM. PT HOB UP TO [address] W/ FIO2 AT 100%. PT RECOVERED WITHIN 10 MINS AND FIO2 TITRATED BACK DOWN 35%. SPO2 NOW 99% ON BIPAP 10/5 FIO2 35%.
[2022-10-10 03:49] LABS: Bun/Creatinine Ratio 30.9 (12.0-20.0); Calcium, Blood 8.5 mg/dL (8.5-10.1); Creatinine, Blood 3.56 mg/dL (0.60-1.20); Magnesium, Blood 2.8 mg/dL (1.6-2.4); Phosphorus, Blood 7.3 mg/dL (2.5-4.9); Potassium, Blood 4.1 mmol/L (3.5-5.5)
--- NOTE | 2022-10-10 07:06 | NUR ---
FAMILY CALLED APPROX 0530 PT DESATURATED TO LOW 80'S. FIO2 TURNED TO 100%. RT CALLED AND IN ROOM. LUNGS COARSE/WHEEZY. RT GAVE BREATHING TREATMENT. PT SITTING W/ HEAD FORWARD AND ATTEMPTED TO LAY PT HEAD BACK. FINGERS COLD, WARM BLANKETS APPLIED, AND PROBE CHANGED TO EAR PROBE. RT CHANGED BIPAP SETTINGS. SPO2 ON EAR PROBE SHOWED 100% W/ GOOD PLETH. BIPAP SETTINGS AT THAT TIME 14/8 FIO2 55%. APPROX 0600 PT DESATURATED AGAIN. THIS RN AND GELATIN PLANT SUPERVISOR IN ROOM. RT CALLED AND IN ROOM. THIS RN CALLED AND RECOMMENDED SHE AND FAMILY COME IN TO SEE PT. RT ADJUSTED SETTINGS AGAIN. SEE RT NOTE FOR SETTINGS. SPO2 UP TO 100% W/ GOOD PLEATH. FAMILY IN ROOM APPROX 0640 AND GIVEN UPDATE. PT C/O BACK PAIN, PT REPOSITIONED AND MEDICATED PER EMAR W/ FAMILY CONSENT. HR INCREASED TO 110'S. RR 28-36. URINE OUTPUT 2100. BEDSIDE REPORT GIVEN TO DAY SHIFT RN. DR BARROW IN ROOM APPROX 0700.
--- NOTE | 2022-10-10 07:39 | NUR ---
ASSUMED CARE OF PT THIS AM PT. CURRENTLY ON BIAP WITH INCREASED SETTINGS 20/12, 100%. PT. LS COARSE T/O AND APPEARS TO HAVE AN INCREASED WORK OF BREATHING, SPO2 READING 85%. RT TO BEDSIDE. BREATHING TX IN PROGRESS. PT ALERT AND ABLE TO NOD HEAD YES AND NO TO QUESTIONS. PT. WAS MEDICATED FOR PAIN BY RASCHEL KNITTING MACHINE OPERATOR RN AND PT SHAKES HEAD YES TO SOME RELIEF WITH MEDICATION. PT. ABD SOFT BUT REMAINS TENDER WITH PALPATION. BLADDER IRRIGATION CONTINUES HOWEVER PER DR. BARROW HAVE SLOWED THE INFUSION RATE. PT. FAMILY CALLED TO BEDSIDE THIS AM WITH INCREASED WORK OF BREATHING. THEY ARE TEARFUL BUT UNDERSTANDING WHEN UPDATED. CALL TO DR. FAYE TO UPDATE. PER FAMILY THEY DO NOT WISH TO ESCALATE CARE AND WOULD LIKE TO MEET WITH DR. FAYE TO DISCUSS POSSIBLY TRANSITIONING THE PT TO COMFORT CARE AFTER HE IS ASSESSED AND OPTIONS FOR PLAN OF CARE ARE REVIEWED.
--- NOTE | 2022-10-10 08:44 | NUR ---
DR. FAYE TO BEDSIDE ORDERS TO BE PLACED TO TRANSITION TO COMFORT CARE. FAMILY TEARFUL AT BEDSIDE. COMFORT CARE CART ORDERED. PALLIATIVE CARE UPDATED AND PASTORAL CARE CALLED PER FAMILY REQUEST. AWAITING ADDITIONAL FAMILY MEMBERS.
--- NOTE | 2022-10-10 09:52 | NUR ---
COMOFORT CARE PT. FAMILY REMAINS AT BEDSIDE. A PRAYER WAS SAID AND BIPAP MASK REMOVED AFTER MORPHINE PER PT AND FAMILY WISHES. PT. SHAKES HEAD YES TO FEELING COMFORTABLE. ALL NEEDS MET AT THIS TIME.
--- NOTE | 2022-10-10 10:08 | NUR ---
PT TOD 1002 DECLARED VIA AUSCULTATION BY PALLIATIVE CARE RN MIRIAM. FAMILY REMAIN AT BEDSIDE. ALL BELONGINGS TO BE SENT WITH FAMILY, AWAITING DECISION FOR HOME.
--- NOTE | 2022-10-10 10:23 | NUR ---
Spiritual care visit conducted. Patient is lying in bed and alert. Family is present. I say a prayer prior to removal of air support mask. I then conduct a life review, while family are telling joyful stories patient quietly expires (TOD 1002). I then provide grief support and a second prayer. Family respond well and show signs of being comforted. I will continue t remain available to patient and family.
--- NOTE | 2022-10-10 12:02 | NUR ---
Summary of time spent on case conference with nursing & rand maker during long visit with pt/family during EOL care with TOD at 1002 am. Pt's family, Rn Otolaryngology and RN present also t/o am. [facility] referral received for pt in ICU #4. Jus Lobato (GENE) was admitted to the ER with SOB, long hx of COPD and chronic resp failure. Per his AD and family desire to follow his AD, he was extubated yesterday with goal of comfort care. Today, pt has remained dependent on Bipap and family feels it is time to remove Bipap and ensure his comfort. Time spent with family at bedside and conferenced with them in ICU waiting area prior to medication and removal of bipap per RN. Explained EOL care, what to expect with the actively dying and discussed their preferences and requests with mulitple family members. We returned to pt's room and remained with him until TOD. Pt appeared calm, peaceful and without distress with the exception of mild restlessness noted with hypoxia. This was relieved with ativan given per RN/eMAR. Rn Otolaryngology in attendance and offered prayer as requested by family. Family told wonderful stories of pt's life and relationships. All were extremely supportive and attentive to the pt and each other. TOD with no respirations or audible HR at 1002 am. Pt appeared oriented and able to participate in conversation with family with nods and blinking up until last 5-10 minutes. He was able to follow commands of nurse providing oral care and tasts of soda he had requested. Pt had audible upper airway secretions briefly. Oral care and gentle suction provided by bedside RN. Pt had extremely peaceful passing, appeared comfortable and indicated he was not experiencing pain t/o my visit.
== END 2022-10-10 12:07 | DRG 208 ==
LOC: ER 21:13 → ICUW 23:40 → ICUE 23:40
PROVIDERS: Emergency Medicine; Internal Medicine; Internal Medicine Critical Care Medicine; ADMIT Internal Medicine
PROC: 0DH67UZ Insertion of Feeding Device into Stomach, Via Natural or Artificial Opening (ICD-10-PCS; 2022-10-05)
PROC: 0T9B70Z Drainage of Bladder with Drainage Device, Via Natural or Artificial Opening (ICD-10-PCS; 2022-10-05)
PROC: 5A1935Z Respiratory Ventilation, Less than 24 Consecutive Hours (ICD-10-PCS; 2022-10-05)
PROC: 0BH17EZ Insertion of Endotracheal Airway into Trachea, Via Natural or Artificial Opening (ICD-10-PCS; 2022-10-05)
PROC: 3E033XZ Introduction of Vasopressor into Peripheral Vein, Percutaneous Approach (ICD-10-PCS; 2022-10-06)
PROC: 5A09457 Assistance with Respiratory Ventilation, 24-96 Consecutive Hours, Continuous Positive Airway Pressure (ICD-10-PCS; 2022-10-06)
PROC: 5A1945Z Respiratory Ventilation, 24-96 Consecutive Hours (ICD-10-PCS; 2022-10-06)
PROC: 0BH17EZ Insertion of Endotracheal Airway into Trachea, Via Natural or Artificial Opening (ICD-10-PCS; 2022-10-06)
PROC: 02HV33Z Insertion of Infusion Device into Superior Vena Cava, Percutaneous Approach (ICD-10-PCS; principal; 2022-10-07)
DX: J96.01 Acute respiratory failure with hypoxia (principal); I50.33 Acute on chronic diastolic (congestive) heart failure; N17.9 Acute kidney failure, unspecified; J44.1 Chronic obstructive pulmonary disease with (acute) exacerbation; G93.40 Encephalopathy, unspecified; E87.29 Other acidosis; I13.0 Hypertensive heart and chronic kidney disease with heart failure and stage 1 through stage 4 chronic kidney disease, or unspecified chronic kidney disease; K50.90 Crohn's disease, unspecified, without complications; J96.22 Acute and chronic respiratory failure with hypercapnia; I48.91 Unspecified atrial fibrillation; Z51.5 Encounter for palliative care; Z66 Do not resuscitate; R31.9 Hematuria, unspecified; N18.30 Chronic kidney disease, stage 3 unspecified; E11.22 Type 2 diabetes mellitus with diabetic chronic kidney disease; I25.10 Atherosclerotic heart disease of native coronary artery without angina pectoris; K21.9 Gastro-esophageal reflux disease without esophagitis; N40.1 Benign prostatic hyperplasia with lower urinary tract symptoms; R33.8 Other retention of urine; E83.39 Other disorders of phosphorus metabolism; E87.5 Hyperkalemia; E11.65 Type 2 diabetes mellitus with hyperglycemia; Z20.822 Contact with and (suspected) exposure to COVID-19; B95.2 Enterococcus as the cause of diseases classified elsewhere; Z88.5 Allergy status to narcotic agent; Z88.8 Allergy status to other drugs, medicaments and biological substances; Z88.1 Allergy status to other antibiotic agents; Z79.51 Long term (current) use of inhaled steroids; Z79.02 Long term (current) use of antithrombotics/antiplatelets; Z98.890 Other specified postprocedural states; Z79.01 Long term (current) use of anticoagulants; Z95.2 Presence of prosthetic heart valve; Z95.1 Presence of aortocoronary bypass graft; Z95.5 Presence of coronary angioplasty implant and graft; Z90.49 Acquired absence of other specified parts of digestive tract; Z79.84 Long term (current) use of oral hypoglycemic drugs; Z79.899 Other long term (current) drug therapy; Z79.52 Long term (current) use of systemic steroids
CPT/HCPCS: 0241U; 31500; 31720; 36415; 36569; 51700; 51702; 51703; 70450; 71045; 76770; 80048; 80053; 81001; 82803; 82947; 83605; 83735; 83880; 84100; 84484; 85025; 85027; 87070; 87077; 87086; 87186; 87205; 93005; 93010; 94002; 94003; 94640; 94644; 94660; 94664; 94762; 96361-59; 96374-59; 96375-59; 97162; 97166; 97530; 99291-25; A9270; C1751; J0456; J0696; J1650; J1815; J1940; J2060; J2270; J2310; J2704; J2930; J3010; J7030; J7050; J7060; J7120; J7500